=== PATIENT | female | born 1940 | race Caucasian/White ===

== ENCOUNTER 2020-10-03 08:01 | Outpatient (REF) | payer MEDICARE, SELFPAY ==
--- NOTE | ~2020-10-03 | XR_ITS ---
EXAMINATION: XR SHOULDER, RIGHT CLINICAL INFORMATION: Right shoulder pain. COMPARISON: None TECHNIQUE: Right shoulder is imaged in 3 views. FINDINGS: There is no fracture or dislocation or destructive process. The glenohumeral joint is unremarkable. The acromioclavicular alignment is normal. There are no visible rotator cuff calcifications. There are degenerative disc changes mid and lower cervical spine with some mild spurring towards the right cervical neural foramen. There are some benign calcifications apex right lung likely granulomata. XR/XR shoulder RT min 2V IMPRESSION: 1. Unremarkable right shoulder. 2. Degenerative changes mid and lower cervical spine.
== END 2020-10-03 08:02 | disposition home or self-care (01) ==
LOC: HO.HOSX 08:01
PROVIDERS: Visit Provider Physician Assistant
DX: M75.41 Impingement syndrome of right shoulder (principal)
CPT/HCPCS: 20610; 73030; 99202; J1040

== ENCOUNTER → 2020-12-30 11:14 | Outpatient (BNVA) | payer MEDICARE, SELFPAY | PROVIDERS: Visit Provider Physician Assistant | DX: M75.41 Impingement syndrome of right shoulder (principal) | CPT/HCPCS: 20610; 99212; J1040 ==

== ENCOUNTER → 2021-04-17 12:19 | Outpatient (BNVA) | payer MEDICARE, SELFPAY | PROVIDERS: PCP Internal Medicine; Visit Provider Physician Assistant | DX: M75.41 Impingement syndrome of right shoulder (principal) | CPT/HCPCS: 20610; 99212; J1040 ==

== ENCOUNTER → 2021-10-20 12:28 | Outpatient (BNVA) | payer MEDICARE, SELFPAY | PROVIDERS: PCP Internal Medicine; Visit Provider Physician Assistant | DX: M75.41 Impingement syndrome of right shoulder (principal) | CPT/HCPCS: 20610; 99212; J1040 ==

== ENCOUNTER 2022-06-07 10:01 | Outpatient (REF) | payer MEDICARE, SELFPAY ==
--- NOTE | ~2022-06-07 | XR_ITS ---
EXAMINATION: Knee x-ray CLINICAL INFORMATION: Pain COMPARISON: Previous x-ray July 2017 TECHNIQUE: Standing AP view of both knees and lateral and sunrise view of the left knee FINDINGS: Left: Bone alignment is normal. No fracture or dislocation. Degenerative changes at the femoral tibial joints with joint space narrowing and degenerative meniscal calcification. Small osteophytes at the patellofemoral joint. Small joint effusion. Atherosclerotic disease. Standing AP view of the right knee demonstrates degenerative change at the femoral tibial joints with degenerative meniscal calcification. XR/XR knee standing BI IMPRESSION: Degenerative changes.
--- NOTE | ~2022-06-07 | XR_ITS ---
EXAMINATION: Knee x-ray CLINICAL INFORMATION: Pain COMPARISON: Previous x-ray July 2017 TECHNIQUE: Standing AP view of both knees and lateral and sunrise view of the left knee FINDINGS: Left: Bone alignment is normal. No fracture or dislocation. Degenerative changes at the femoral tibial joints with joint space narrowing and degenerative meniscal calcification. Small osteophytes at the patellofemoral joint. Small joint effusion. Atherosclerotic disease. Standing AP view of the right knee demonstrates degenerative change at the femoral tibial joints with degenerative meniscal calcification. XR/XR knee LT 2V IMPRESSION: Degenerative changes.
== END 2022-06-07 10:02 | disposition home or self-care (01) ==
LOC: HO.HOSX 10:01
PROVIDERS: Visit Provider Physician Assistant
DX: M17.12 Unilateral primary osteoarthritis, left knee (principal)
CPT/HCPCS: 20610; 73560; 73565; 99212; J1040

== ENCOUNTER 2023-04-05 15:16 | Outpatient (AMB) | payer MEDICARE, SELFPAY ==
--- NOTE | 2023-04-05 15:23 | A.OFFVIS_ITS ---
Intake Intake Visit Reasons: OV - Left knee OA, last inj 06/07/22 Intake Note: Margi is a 82 year old female who presents today for her left knee OA, last injection 06/07/22. Patient reports she noticed a lump behind of the knee about a couple months. She states that is causing her a lot of pain and she is unsure if the lump is causing her the left knee pain. Allergies acetaminophen [Percocet] Allergy (Unknown, Verified 04/05/23 15:26) rash oxycodone [Percocet] Allergy (Unknown, Verified 04/05/23 15:26) Rash HPI OV - Left knee OA, last inj 06/07/22 HPI Details 82-year-old female who presents in the [facility] today for an evaluation of a possible naylor?s cyst on the left knee. I last saw the patient in the office on 06/07/2022 where she was given a cortisone injection. The patient reports noticing a lump on the back side of her left knee for a few months. She states this is causing her a lot of pain. PFSH Medical History Cholecystectomy planned Social History Current occupational status: retired Current occupation: rt handed Review of Systems Const All systems reviewed & are unremarkable except as noted in HPI and below Physical Exam Const General: cooperative, healthy appearing and no acute distress Resp Effort & Inspection: normal respiratory effort and able to speak in complete sentences Cardio Rate: regular rate Peripheral pulses: Peripheral pulses 2+ throughout GI Palpation (GI): Soft to palpation Skin Lesions: no lesions Rashes: no rashes Extrem Other: Left knee: Visible naylor?s cyst also palpable on exam. ROM is 20-90 degrees. Sensation intact. NVI. Office Procedures Joint Injection/Drain Joint Injection/Drain Primary Site: left knee Prep: site was prepped using aseptic technique, ethochloride spray was applied and injection warnings given Injected: 80 mg of, DepoMedrol, with 8 mL of (2% plain lido ) and in the joint Approach Used: anterolateral Procedure: The patient tolerated the procedure well, but had some pain with the injection and there was some relief with the local anesthesia Coding 56515 - Large joint Procedure code (CPT) selection complete Assessment & Plan Assessment & Plan (1) Synovial cyst of popliteal space [Naylor], left knee: Code(s): M71.22 - Synovial cyst of popliteal space [Naylor], left knee (2) Osteoarthritis of left knee: Code(s): M17.12 - Unilateral primary osteoarthritis, left knee Plan Ms. House is an 82-year-old female who presents in the office today for an evaluation of a possible naylor?s cyst on the left knee. I last saw the patient in the office on 06/07/2022 where she was given a cortisone injection. The patient reports noticing a lump on the back side of her left knee for a few months. She states this is causing her a lot of pain. The patient was offered a cortisone injection in the left knee with 80 mg of DepoMedrol. The patient was explained the risk, benefits, and alternatives to receiving this injection. After receiving consent for the injection, the patient had the procedure done while in office today. The patient tolerated the procedure well with no complications. We are going to do the cortisone injection to see if this will help to reduce some of the effusion contributing to the naylor?s cyst and pain. Follow up will be PRN, or sooner if needed. Patient Instructions: Scribed for Lizeth Hawkins PA-C by Loretta Allen medical receptionist biller, on 04/05/2023 at 3:23 pm, EST. Coding Level of Care Code Est Pt Level 3 (71352) Diagnoses Synovial cyst of popliteal space [Naylor], left knee M71.22 Osteoarthritis of left knee M17.12 CPT Codes Coding - 19537 Large joint: 31992 - Large joint ([id number])
== END 2023-04-05 15:51 | disposition home or self-care (01) ==
PROVIDERS: PCP Internal Medicine; Visit Provider Physician Assistant
DX: M71.22 Synovial cyst of popliteal space [Baker], left knee (principal); M17.12 Unilateral primary osteoarthritis, left knee
CPT/HCPCS: 20610; 99213

== ENCOUNTER → 2023-04-05 15:16 | Outpatient (BNVA) | payer MEDICARE, SELFPAY | PROVIDERS: PCP Internal Medicine; Visit Provider Physician Assistant | DX: M17.12 Unilateral primary osteoarthritis, left knee (principal); M71.22 Synovial cyst of popliteal space [Baker], left knee | CPT/HCPCS: 20610; 99212; J1040 ==

== ENCOUNTER 2023-06-30 14:00 | Outpatient (AMB) | payer MEDICARE, SELFPAY ==
--- NOTE | 2023-06-30 14:35 | A.OFFVIS_ITS ---
Intake Visit Reasons: OV - Left knee OA, last inj 04/05/23 Allergies acetaminophen [Percocet] Allergy (Unknown, Verified 04/05/23 15:26) rash oxycodone [Percocet] Allergy (Unknown, Verified 04/05/23 15:26) Rash HPI HPI OV - Left knee OA, last inj 04/05/23: Details: 82-year-old female who presents in the office today for a follow up of a left knee naylor?s cyst. I last saw the patient in the office on 04/05/2023 when she was given a cortisone injection. Patient reports her last injection only gave her a few days of relief. PFSH Medical History Cholecystectomy planned Social History Current occupational status: retired Current occupation: rt handed Review of Systems Const All systems reviewed & are unremarkable except as noted in HPI and below Physical Exam Const General: cooperative, healthy appearing and no acute distress Resp Effort & Inspection: normal respiratory effort and able to speak in complete sentences Cardio Rate: regular rate Peripheral pulses: Peripheral pulses 2+ throughout GI Palpation (GI): Soft to palpation Skin Lesions: no lesions Rashes: no rashes Extrem Other: Left knee: Visible naylor?s cyst also palpable on exam. ROM is 20-90 degrees. Sensation intact. NVI. Office Procedures Joint Injection/Drain Joint Injection/Drain Primary Site: left knee Prep: site was prepped using aseptic technique, ethochloride spray was applied and injection warnings given Injected: 80 mg of, DepoMedrol, with 8 mL of (2% plain lido ) and in the joint Approach Used: anterolateral Procedure: The patient tolerated the procedure well, but had some pain with the injection and there was some relief with the local anesthesia Coding 97264 - Large joint Procedure code (CPT) selection complete Assessment & Plan Assessment & Plan (1) Synovial cyst of popliteal space [Naylor], left knee: Code(s): M71.22 - Synovial cyst of popliteal space [Naylor], left knee Category: Medical (2) Osteoarthritis of left knee: Code(s): M17.12 - Unilateral primary osteoarthritis, left knee Category: Medical Qualifiers: Osteoarthritis type: unspecified Qualified Code(s): M17.12 - Unilateral primary osteoarthritis, left knee Plan Ms. House is an 82-year-old female who presents in the office today for a follow up of a left knee naylor?s cyst. I last saw the patient in the office on 04/05/2023 when she was given a cortisone injection. Patient reports her last injection only gave her a few days of relief. The patient was offered a cortisone injection in the left knee with 80 mg of DepoMedrol. The patient was explained the risk, benefits, and alternatives to receiving this injection. After receiving consent for the injection, the patient had the procedure done while in the office today. The patient tolerated the procedure well with no complications. I did discuss with the patient to give the injection a few weeks to work. However, she did state the last injection only gave her a few days. Should that occur this time the next step will be to petition the insurance for Gel injections. Follow up will be PRN, or sooner if needed. Patient Instructions: Scribed by Loretta Allen internist medical doctor md, for Lizeth Hawkins PA-C on 06/30/2023 at 2:08 pm, EST. Coding Level of Care Code Est Pt Level 3 (22611) Diagnoses Synovial cyst of popliteal space [Naylor], left knee M71.22 Osteoarthritis of left knee, unspecified osteoarthritis type M17.12 Osteoarthritis type: unspecified CPT Codes Coding - 03929 Large joint: 87799 - Large joint ([id number])
== END 2023-06-30 14:34 | disposition home or self-care (01) ==
PROVIDERS: PCP Internal Medicine; Visit Provider Physician Assistant
DX: M71.22 Synovial cyst of popliteal space [Baker], left knee (principal); M17.12 Unilateral primary osteoarthritis, left knee
CPT/HCPCS: 20610; 99213

== ENCOUNTER → 2023-06-30 14:00 | Outpatient (BNVA) | payer MEDICARE, SELFPAY | PROVIDERS: PCP Internal Medicine; Visit Provider Physician Assistant | DX: M71.22 Synovial cyst of popliteal space [Baker], left knee (principal); M17.12 Unilateral primary osteoarthritis, left knee | CPT/HCPCS: 20610; 99212; J1010 ==

== ENCOUNTER 2023-11-01 12:33 | Outpatient (AMB) | payer MEDICARE, SELFPAY ==
--- NOTE | 2023-11-01 12:35 | A.OFFVIS_ITS ---
Intake Visit Reasons: OV - Left knee OA, last inj 06/30/23 Intake Note: Margi is a 83 year old female who presents today for her left knee OA, last injection 06/30/23. Patient reports Allergies acetaminophen [Percocet] Allergy (Unknown, Verified 04/05/23 15:26) rash oxycodone [Percocet] Allergy (Unknown, Verified 04/05/23 15:26) Rash HPI HPI OV - Left knee OA, last inj 06/30/23: Details: 83-year-old female who presents in the office today for a follow-up of left knee osteoarthritis. I last saw the patient in the office on 06/30/23 when she was given a cortisone injection in the left knee. ? ? While in the office today, the patient would like to repeat the injection in the office today. ? PFSH Medical History Cholecystectomy planned Social History Current occupational status: retired Current occupation: rt handed Review of Systems Const All systems reviewed & are unremarkable except as noted in HPI and below Physical Exam Const General: cooperative, healthy appearing and no acute distress Resp Effort & Inspection: normal respiratory effort and able to speak in complete sentences Cardio Rate: regular rate Peripheral pulses: Peripheral pulses 2+ throughout GI Palpation (GI): Soft to palpation Skin Lesions: no lesions Rashes: no rashes Extrem Other: Left knee: Visible naylor?s cyst also palpable on exam. ROM is 20-90 degrees. Sensation intact. NVI. Office Procedures Joint Injection/Aspiration Joint Injection/Aspiration Primary Site: left knee Prep: site was prepped using aseptic technique, ethochloride spray was applied and injection warnings given Injected: 80 mg of, DepoMedrol, with 8 mL of (2% plain lido ) and in the joint Approach Used: anterolateral Procedure: The patient tolerated the procedure well, but had some pain with the injection and there was some relief with the local anesthesia Coding 19604 - Large joint Procedure code (CPT) selection complete Assessment & Plan Assessment & Plan (1) Synovial cyst of popliteal space [Naylor], left knee: Code(s): M71.22 - Synovial cyst of popliteal space [Naylor], left knee Category: Medical (2) Osteoarthritis of left knee: Code(s): M17.12 - Unilateral primary osteoarthritis, left knee Category: Medical Qualifiers: Osteoarthritis type: unspecified Qualified Code(s): M17.12 - Unilateral primary osteoarthritis, left knee Plan Ms. House is an 83-year-old female who presents in the office today for a follow-up of left knee osteoarthritis. I last saw the patient in the office on 06/30/23 when she was given a cortisone injection in the left knee. ? ? While in the office today, the patient would like to repeat the injection in the office today.? ? The patient was offered a cortisone injection in the left knee with 80 mg of DepoMedrol. The patient was explained the risk, benefits, and alternatives to receiving this injection. After receiving consent for the injection, the patient had the procedure done while in the office today. The patient tolerated the procedure well with no complications.? ? The office will petition the insurance for approval to proceed with Gel injections. Follow-up will be after insurance approval is obtained, or sooner if needed. Patient Instructions: Scribed by Loretta Allen medical record administrator, for Lizeth Hawkins PA-C on 11/01/2023 at 12:35 pm, EST.? Coding Level of Care Code Est Pt Level 3 (32304) Diagnoses Synovial cyst of popliteal space [Naylor], left knee M71.22 Osteoarthritis of left knee, unspecified osteoarthritis type M17.12 Osteoarthritis type: unspecified CPT Codes Coding - 46892 Large joint: 75387 - Large joint ([id number])
== END 2023-11-01 13:03 | disposition home or self-care (01) ==
PROVIDERS: PCP Internal Medicine; Visit Provider Physician Assistant
DX: M17.12 Unilateral primary osteoarthritis, left knee (principal); M71.22 Synovial cyst of popliteal space [Baker], left knee
CPT/HCPCS: 20610; 99213

== ENCOUNTER → 2023-11-01 12:33 | Outpatient (BNVA) | payer MEDICARE, SELFPAY | PROVIDERS: PCP Internal Medicine; Visit Provider Physician Assistant | DX: M17.12 Unilateral primary osteoarthritis, left knee (principal); M71.22 Synovial cyst of popliteal space [Baker], left knee | CPT/HCPCS: 20610; 99212; J1010 ==

== ENCOUNTER → 2024-04-10 12:49 | Outpatient (BNVA) | payer MEDICARE, SELFPAY | PROVIDERS: PCP Nurse Practitioner Family; Visit Provider Physician Assistant | DX: M17.12 Unilateral primary osteoarthritis, left knee (principal); M71.22 Synovial cyst of popliteal space [Baker], left knee | CPT/HCPCS: 20610; 99212; J1010; J2003 ==

== ENCOUNTER 2024-07-10 13:19 | Outpatient (AMB) | payer MEDICARE, SELFPAY ==
--- NOTE | 2024-07-10 13:25 | MHC.OFFVIS ---
Intake Visit Reasons: OV- LT knee OA last inj 04/10/24 Intake Note: Margi is a 83 year old female who presents today for her left knee OA, last injection 04/10/24. Patient reports that the last injection only provided mild relief. She was previously approved for gel injection but was sick and unable to attend appointment and authorization . She is hping to repeat cortisone injection today and proceed with Gel when authorized. Allergies acetaminophen [Percocet] Allergy (Unknown, Verified 07/10/24 13:32) rash oxycodone [Percocet] Allergy (Unknown, Verified 07/10/24 13:32) Rash HPI HPI OV- LT knee OA last inj 04/10/24: Details: Ms. House is an 83-year-old female who presents to the office today for left knee osteoarthritis. She last received a cortisone injection on 04/10/2024 with good relief. She would like to repeat injection while the office today. PFSH Medical History Cholecystectomy planned Social History Current occupational status: retired Current occupation: rt handed Review of Systems Const All systems reviewed & are unremarkable except as noted in HPI and below Physical Exam Const General: cooperative, healthy appearing and no acute distress Resp Effort & Inspection: normal respiratory effort and able to speak in complete sentences Extrem Other: Left knee: ROM is 20-90 degrees. Sensation intact. NVI. Office Procedures AMB Joint Injection/Aspiration Joint Injection/Aspiration Primary Site: left knee Prep: site was prepped using aseptic technique, ethochloride spray was applied and injection warnings given Injected: 80 mg of, DepoMedrol, with 8 mL of (2% plain lido ) and in the joint Approach Used: anterolateral Procedure: The patient tolerated the procedure well, but had some pain with the injection and there was some relief with the local anesthesia Coding 83926 - Large joint Procedure code (CPT) selection complete Assessment & Plan Assessment & Plan (1) Synovial cyst of popliteal space [Naylor], left knee: Code(s): M71.22 - Synovial cyst of popliteal space [Naylor], left knee Category: Medical (2) Osteoarthritis of left knee: Code(s): M17.12 - Unilateral primary osteoarthritis, left knee Category: Medical Qualifiers: Osteoarthritis type: unspecified Qualified Code(s): M17.12 - Unilateral primary osteoarthritis, left knee Plan The patient was offered a cortisone injection in the left knee with 80 mg of DepoMedrol. The patient was explained the risks, benefits, and alternatives to receiving this injection. After receiving consent for the injection, the patient had the procedure done while in the office today. The patient tolerated the procedure well with no complications. Patient is interested in moving forward with gel injections as cord injections have lost their efficacy over time.We will petition the insurance company for authorization. She will follow up after authorization is obtained, sooner if needed. Coding Level of Care Code Est Pt Level 3 (11007) Diagnoses Synovial cyst of popliteal space [Naylor], left knee M71.22 Osteoarthritis of left knee, unspecified osteoarthritis type M17.12 Osteoarthritis type: unspecified CPT Codes Coding - 97199 Large joint: 02994 - Large joint ([id number])
--- OUTSIDE RECORDS SUMMARY | 2024-07-10 14:35 | XMS_ITS | Encounter Summary ---
Author Organization [facility] Address [address] [place] [address] Care Team Providers Care Wire Spiral Binder Name Role Phone Flaco Moser MD Primary Care Provider [phone] Encounter Details Date Type Department Care Team (Late st Contact Info) Description 05/15/2024 Lab Requisition [facility] - Main Lab [address] [facility] [place] [address] Flaco Moser MD [address] [place] [address] [phone] Encounter for other general examination Social History Tobacco Use Types Packs/Day Years Used Date Smoking Tobacco: Never Assessed Comments Unknown Sex and Gender Information Value Date Recorded Sex Assigned at Not on file Legal Sex Female 12:45 PM EST Gender Identity Not on file Sexual Orientation Not on file documented as of this encounter Plan of Treatment Not on file documented as of this encounter Procedures Procedure Name Priority Date/Time Associated Diagnosis Comments URINALYSIS WITH REFLEX MICROSCOPIC AND CULTURE Routine 05/14/2024 6:00 PM EDT Encounter for other general examination CHEN URINE CULTURE TUBE Routine 05/14/2024 6:00 PM EDT Encounter for other general examination URINALYSIS WITH REFLEX MICROSCOPIC AND CULTURE Routine 05/14/2024 6:00 PM EDT Encounter for other general examination CULTURE URINE Routine 05/14/2024 6:00 PM EDT Encounter for other general examination documented in this encounter Results * (ABNORMAL) Culture urine (05/14/2024 6:00 PM EDT) Culture, Urine >100,000 CFU/mL Escherichia coli(A) MARILY 05/18/2024 11:12 AM EDT [facility] Comment: The organism value for this result has been updated. These results have been appended to the previously preliminary verified report. Urine Urine specimen obtained by clean catch procedure / Unknown Non-blood Collection / Unknown 05/14/2024 6:00 PM EDT 05/15/2024 12:57 PM EDT Narrative [facility] - 05/18/2024 11:12 AM EDT Additional colony types present in insignificant amounts. Organism Antibiotic Method Susceptibility Escherichia coli Amoxicillin/Clavulanate MARILY <=2 ug/ml: Susceptible Escherichia coli Ampicillin/Sulbactam MARILY <=2 ug/ml: Susceptible Escherichia coli Piperacillin/Tazobactam MARILY <=4 ug/ml: Susceptible Escherichia coli Cefazolin (Urine) MARILY <=1 ug/ml: Susceptible Escherichia coli Cefoxitin MARILY <=4 ug/ml: Susceptible Escherichia coli Ceftazidime MARILY <=0.5 ug/ml: Susceptible Escherichia coli Ceftriaxone MARILY <=0.25 ug/ml: Susceptible Escherichia coli Cefepime MARILY <=0.12 ug/ml: Susceptible Escherichia coli Meropenem MARILY <=0.25 ug/ml: Susceptible Escherichia coli Gentamicin MARILY 2 ug/ml: Susceptible Escherichia coli Ciprofloxacin MARILY <=0.06 ug/ml: Susceptible Escherichia coli Levofloxacin MARILY <=0.12 ug/ml: Susceptible Escherichia coli Nitrofurantoin MARILY <=16 ug/ml: Susceptible Escherichia coli Trimethoprim/Sulfamethoxazole MARILY <=20 ug/ml: Susceptible us Flaco Moser MD LAB MICROBIOLOGY - GENERAL ORD ERABLES Final Result [facility] [address] [place] [address], * (ABNORMAL) Urinalysis with reflex microscopic and culture (05/14/2024 6:00 PM EDT) Specific [place] Urine 1.037(H) 1.003 - 1.030 LAB URINALYSIS - AUTOMATED METHOD 05/15/2024 12:57 PM [facility] pH, Urine 5.5 5.0 - 8.0 pH LAB URINALYSIS - AUTOMATED METHOD 05/15/2024 12:57 PM [facility] Leukocytes, Urine Moderate(A) Negative LAB URINALYSIS - AUTOMATED METHOD 05/15/2024 12:57 PM [facility] Nitrite, Urine Positive(A) Negative LAB URINALYSIS - AUTOMATED METHOD 05/15/2024 12:57 PM [facility] Protein, Urine 30(A) <=Trace mg/dL LAB URINALYSIS - AUTOMATED METHOD 05/15/2024 12:57 PM [facility] Glucose, Urine Negative Negative mg/dL LAB URINALYSIS - AUTOMATED METHOD 05/15/2024 12:57 PM [facility] Ketones, Urine Trace(A) Negative mg/dL LAB URINALYSIS - AUTOMATED METHOD 05/15/2024 12:57 PM [facility] Urobilinogen , Urine 1.0 0.2 - 1.0 mg/dL LAB URINALYSIS - AUTOMATED METHOD 05/15/2024 12:57 PM [facility] Bilirubin, Urine Negative Negative LAB URINALYSIS - AUTOMATED METHOD 05/15/2024 12:57 PM [facility] Blood, Urine Negative Negative LAB URINALYSIS - AUTOMATED METHOD 05/15/2024 12:57 PM [facility] RBC, Urine 3.2 0 - 4 /HPF LAB URINALYSIS - AUTOMATED METHOD 05/15/2024 12:57 PM [facility] WBC, Urine 161.2(H) 0 - 4 /HPF LAB URINALYSIS - AUTOMATED METHOD 05/15/2024 12:57 PM [facility] Squamous Epithelial, Urine >100(H) 0 - 60 /LPF LAB URINALYSIS - AUTOMATED METHOD 05/15/2024 12:57 PM EDT [facility] Bacteria, Urine Many(A) Negative /HPF LAB URINALYSIS - AUTOMATED METHOD 05/15/2024 12:57 PM EDT [facility] Hyaline Casts, Urine 9.5(H) 0 - 3 /LPF LAB URINALYSIS - AUTOMATED METHOD 05/15/2024 12:57 PM EDT [facility] Urine Urine specimen obtained by clean catch procedure / Unknown Non-blood Collection / Unknown 05/14/2024 6:00 PM EDT 05/15/2024 10:30 AM EDT us Flaco Moser MD LAB URINE ORDERABLES Final Res ult Performing Organization Address City/[facility]/ZIP Co de Phone Number [facility] [address] [place] [address], [place] [phone] * Chen urine culture tube (05/14/2024 6:00 PM EDT) Extra Tube Hold for add-ons. 05/15/2024 12:02 PM EDT [facility] Comment:Auto resulted. Urine Urine specimen obtained by clean catch procedure / Unknown Non-blood Collection / Unknown 05/14/2024 6:00 PM EDT 05/15/2024 10:30 AM EDT us Flaco Moser MD LAB URINE ORDERABLES Final Res ult Performing Organization Address City/[facility]/ZIP Co de Phone Number [facility] [address] [place] [address], [place] [phone] documented in this encounter Visit Diagnoses Diagnosis Encounter for other general examination documented in this encounter Care Teams Wire Spiral Binder Relationship Specialty Start Date End Date Flaco Moser MD [address] [place] [phone] PCP - General Internal Medicine 05/08/24 documented as of this encounter
--- OUTSIDE RECORDS SUMMARY | 2024-07-10 14:35 | XMS_ITS | Encounter Summary ---
Author Organization [facility] Address [address] [place] [address] Care Team Providers Care Fish Hatchery Inspector Name Role Phone Flaco Moser MD Primary Care Provider [phone] Encounter Details Date Type Department Care Team ([facility] st Contact Info) Description 05/08/2024 Lab Requisition [facility] - Main Lab [address] [facility] [place] [address] Flaco Moser MD [address] [place] [address] [phone] Encounter for other general examination Social History [...] Procedure Name Priority Date/Time Associated Diagnosis Comments CBC WITH AUTO DIFFERENTIAL Routine 05/08/2024 6:13 AM EST Encounter for other general examination CBC AND DIFFERENTIAL Routine 05/08/2024 6:13 AM EST Encounter for other general examination MAGNESIUM Routine 05/08/2024 6:13 AM EST Encounter for other general examination COMPREHENSIVE METABOLIC PANEL Routine 05/08/2024 6:13 AM EST Encounter for other general examination documented in this encounter Results * (ABNORMAL) CBC auto differential (05/08/2024 6:13 AM EST) WBC 8.4 4.8 - 10.8 K/mcL LAB HEMETOLOGY METHOD 05/08/2024 10:28 AM [facility] RBC 4.10 3.80 - 4.80 M/mcL LAB HEMETOLOGY METHOD 05/08/2024 10:28 AM [facility] Hemoglobin 12.4 11.5 - 16.0 g/dL LAB HEMETOLOGY METHOD 05/08/2024 10:28 AM [facility] Hematocrit 37.3 35.0 - 47.0 % LAB HEMETOLOGY METHOD 05/08/2024 10:28 AM [facility] MCV 91.6 79.0 - 98.0 FL LAB HEMETOLOGY METHOD 05/08/2024 10:28 AM [facility] MCH 30.5 27.0 - 32.0 pcg LAB HEMETOLOGY METHOD 05/08/2024 10:28 AM [facility] MCHC 33.2 32.0 - 37.0 g/dL LAB HEMETOLOGY METHOD 05/08/2024 10:28 AM [facility] RDW 12.8 11.0 - 15.0 % LAB HEMETOLOGY METHOD 05/08/2024 10:28 AM [facility] Platelets 265 130 - 400 K/mcL LAB HEMETOLOGY METHOD 05/08/2024 10:28 AM [facility] MPV 9.5 7.0 - 11.0 FL LAB HEMETOLOGY METHOD 05/08/2024 10:28 AM [facility] NRBC 0.0 <1.0 % LAB HEMETOLOGY METHOD 05/08/2024 10:28 AM [facility] NRBC Absolute 0.00 <0.10 K/mcL LAB HEMETOLOGY METHOD 05/08/2024 10:28 AM [facility] Neutrophils Relative 63.2 % LAB HEMETOLOGY METHOD 05/08/2024 10:28 AM [facility] Lymphocytes Relative 18.8 % LAB HEMETOLOGY METHOD 05/08/2024 10:28 AM [facility] Monocytes Relative 14.3 % LAB HEMETOLOGY METHOD 05/08/2024 10:28 AM [facility] Eosinophils Relative 2.5 % LAB HEMETOLOGY METHOD 05/08/2024 10:28 AM [facility] Basophils Relative 0.6 % LAB HEMETOLOGY METHOD 05/08/2024 10:28 AM [facility] Immature Granulocytes Relative 0.6 % LAB HEMETOLOGY METHOD 05/08/2024 10:28 AM [facility] Neutrophils Absolute 5.31 1.50 - 7.00 K/mcL LAB HEMETOLOGY METHOD 05/08/2024 10:28 AM [facility] Lymphocytes Absolute 1.58 1.00 - 5.00 K/mcL LAB HEMETOLOGY METHOD 05/08/2024 10:28 AM [facility] Monocytes Absolute 1.20(H) 0.20 - 1.00 K/mcL LAB HEMETOLOGY METHOD 05/08/2024 10:28 AM [facility] Eosinophils Absolute 0.21 0.00 - 0.50 K/mcL LAB HEMETOLOGY METHOD 05/08/2024 10:28 AM [facility] Basophils Absolute 0.05 0.00 - 0.20 K/mcL LAB HEMETOLOGY METHOD 05/08/2024 10:28 AM [facility] Immature Granulocytes Absolute 0.05(H) 0.00 - 0.03 K/mcL LAB HEMETOLOGY METHOD 05/08/2024 10:28 AM [facility] Blood Venous blood specimen / Unknown Venipuncture / Unknown 05/08/2024 6:13 AM EST 05/08/2024 9:15 AM EST us Adnan M Dahdul MD LAB BLOOD ORDERABLES Final Res ult [facility] [address] [place] [address], [place] [phone] * (ABNORMAL) Magnesium (05/08/2024 6:13 AM EST) Magnesium 1.8(L) 1.9 - 2.6 mg/dL LAB CHEMISTRY METHOD 05/08/2024 10:52 AM EST [facility] Blood Venous blood specimen / Unknown Venipuncture / Unknown 05/08/2024 6:13 AM EST 05/08/2024 9:15 AM EST Flaco Moser MD LAB BLOOD ORDERABLES Final Res ult Performing Organization Address City/[facility]/ZIP Co de Phone Number [facility] [address] [place] [address], [place] [phone] * (ABNORMAL) Comprehensive metabolic panel (05/08/2024 6:13 AM EST) Pathologist [facility] Sodium 132(L) 133 - 145 mmol/L LAB CHEMISTRY METHOD 05/08/2024 10:52 AM [facility] Potassium 3.9 3.5 - 5.5 mmol/L LAB CHEMISTRY METHOD 05/08/2024 10:52 AM [facility] Chloride 93(L) 96 - 110 mmol/L LAB CHEMISTRY METHOD 05/08/2024 10:52 AM [facility] CO2 32 21 - 32 mmol/L LAB CHEMISTRY METHOD 05/08/2024 10:52 AM [facility] Anion Gap 7 3 - 11 LAB CHEMISTRY METHOD 05/08/2024 10:52 AM [facility] Glucose 99 70 - 100 mg/dL LAB CHEMISTRY METHOD 05/08/2024 10:52 AM [facility] BUN 49(H) 5 - 25 mg/dL LAB CHEMISTRY METHOD 05/08/2024 10:52 AM [facility] Creatinine 0.62 0.50 - 1.10 mg/dL LAB CHEMISTRY METHOD 05/08/2024 10:52 AM [facility] eGFR 87 >=60 mL/min/1. 73m2 LAB CHEMISTRY METHOD 05/08/2024 10:52 AM [facility] Comment:Calculation based on the??Chronic Kidney Disease Epidemiology Collaboration (CKD-EPI) equation refit??without adjustment for race. BUN/Creatinine Ratio 79.0 LAB CHEMISTRY METHOD 05/08/2024 10:52 AM [facility] Calcium 9.3 8.5 - 10.5 mg/dL LAB CHEMISTRY METHOD 05/08/2024 10:52 AM [facility] AST (SGOT) 32 10 - 42 unit/L LAB CHEMISTRY METHOD 05/08/2024 10:52 AM [facility] ALT (SGPT) 25 10 - 60 unit/L LAB CHEMISTRY METHOD 05/08/2024 10:52 AM [facility] Alkaline Phosphatase 74 42 - 121 unit/L LAB CHEMISTRY METHOD 05/08/2024 10:52 AM [facility] Total Protein 5.7(L) 6.0 - 8.0 g/dL LAB CHEMISTRY METHOD 05/08/2024 10:52 AM [facility] Albumin 2.5(L) 3.2 - 5.0 g/dL LAB CHEMISTRY METHOD 05/08/2024 10:52 AM [facility] Total Bilirubin 0.6 0.0 - 1.4 mg/dL LAB CHEMISTRY METHOD 05/08/2024 10:52 AM [facility] Blood Venous blood specimen / Unknown Venipuncture / Unknown 05/08/2024 6:13 AM EST 05/08/2024 9:15 AM EST Flaco Moser MD LAB BLOOD ORDERABLES Final Res ult [facility] [address] [place] [address], documented in this encounter Visit Diagnoses Diagnosis Encounter for other general examination documented in this encounter Care Teams Fish Hatchery Inspector Relationship Specialty Start Date End Date Flaco Moser MD [address] [place] [phone] PCP - General Internal Medicine 05/08/24 documented as of this encounter
--- OUTSIDE RECORDS SUMMARY | 2024-07-10 14:35 | XMS_ITS | Encounter Summary ---
Author Organization [facility] Address [address] [place] [address] Care Team Providers Care Vertical Contour Band Saw Operator Name Role Phone Flaco Moser MD Primary Care Provider [phone] Encounter Details Date Type Department Care Team (Late st Contact Info) Description 05/21/2024 Lab Requisition [facility] - Main Lab [address] [place] [phone] Flaco Moser MD [address] [place] [address] [phone] Encounter for other general examination Social History [...] Procedure Name Priority Date/Time Associated Diagnosis Comments COMPLETE BLOOD COUNT Routine 05/21/2024 5:58 AM EDT Encounter for other general examination COMPREHENSIVE METABOLIC PANEL Routine 05/21/2024 5:58 AM EDT Encounter for other general examination documented in this encounter Results * (ABNORMAL) Complete blood count (05/21/2024 5:58 AM EDT) WBC 4.2(L) 4.8 - 10.8 K/[facility] LAB HEMETOLOGY METHOD 05/21/2024 1:18 PM EDT [facility] RBC 3.80 3.80 - 4.80 M/[facility] LAB HEMETOLOGY METHOD 05/21/2024 1:18 PM EDT [facility] Hemoglobin 11.7 11.5 - 16.0 g/dL LAB HEMETOLOGY METHOD 05/21/2024 1:18 PM EDT [facility] Hematocrit 36.3 35.0 - 47.0 % LAB HEMETOLOGY METHOD 05/21/2024 1:18 PM EDT [facility] MCV 94.8 79.0 - 98.0 FL LAB HEMETOLOGY METHOD 05/21/2024 1:18 PM EDT [facility] MCH 30.5 27.0 - 32.0 pcg LAB HEMETOLOGY METHOD 05/21/2024 1:18 PM EDT [facility] MCHC 32.2 32.0 - 37.0 g/dL LAB HEMETOLOGY METHOD [facility] RDW 13.1 11.0 - 15.0 % LAB HEMETOLOGY METHOD 05/21/2024 1:18 PM EDT [facility] Platelets 432(H) 130 - 400 K/mcL LAB HEMETOLOGY METHOD 05/21/2024 1:18 PM EDT [facility] MPV 8.8 7.0 - 11.0 FL LAB HEMETOLOGY METHOD 05/[facility]2024 [facility] NRBC 0.0 <1.0 % LAB HEMETOLOGY METHOD 05/21/2024 1:18 PM EDT [facility] NRBC Absolute 0.00 <0.10 K/mcL LAB HEMETOLOGY METHOD 05/21/2024 1:[address] [facility] Blood Venous blood specimen / Unknown Venipuncture / Unknown 05/21/2024 5:58 AM EDT 05/21/2024 10:05 AM EDT Flaco Moser MD LAB BLOOD ORDERABLES Final Res ult [facility] [address] [place] [address], * (ABNORMAL) Comprehensive metabolic panel (05/21/2024 5:58 AM EDT) Sodium 140 133 - 145 mmol/L LAB CHEMISTRY METHOD 05/21/2024 1:50 PM EDT [facility] Potassium 3.9 3.5 - 5.5 mmol/L LAB CHEMISTRY METHOD 05/21/2024 1:[address] [facility] Chloride 104 96 - 110 mmol/L LAB CHEMISTRY METHOD 05/21/2024 1:[address] [facility] CO2 27 21 - 32 mmol/L LAB CHEMISTRY METHOD 05/21/2024 1:[address] [facility] Anion Gap 9 3 - 11 LAB CHEMISTRY METHOD 05/21/2024 1:[address] [facility] Glucose 85 70 - 100 mg/dL LAB CHEMISTRY METHOD 05/21/2024 1:[address] [facility] BUN 8 5 - 25 mg/dL LAB CHEMISTRY METHOD 05/21/2024 1:[address] [facility] Creatinine 0.43(L) 0.50 - 1.10 mg/dL LAB CHEMISTRY METHOD [facility] eGFR 95 >=60 mL/min/1. 73m2 LAB CHEMISTRY METHOD 05/21/2024 1:[address] [facility] Comment:Calculation based on the??Chronic Kidney Disease Epidemiology Collaboration (CKD-EPI) equation refit??without adjustment for race. BUN/Creatinine Ratio 18.6 LAB CHEMISTRY METHOD 05/21/2024 1:[address] [facility] Calcium 8.9 8.5 - 10.5 mg/dL LAB CHEMISTRY METHOD 05/21/2024 1:50 PM EDT [facility] AST (SGOT) 10 10 - 42 unit/L LAB CHEMISTRY METHOD 05/21/2024 1:50 PM EDT [facility] ALT (SGPT) 16 10 - 60 unit/L LAB CHEMISTRY METHOD 05/21/2024 1:50 PM EDT [facility] Alkaline Phosphatase 103 42 - 121 unit/L LAB CHEMISTRY METHOD 05/21/2024 1:50 PM EDT [facility] Total Protein 5.8(L) 6.0 - 8.0 g/dL LAB CHEMISTRY METHOD 05/21/2024 1:50 PM EDT [facility] Albumin 2.7(L) 3.2 - 5.0 g/dL LAB CHEMISTRY METHOD 05/21/2024 1:50 PM EDT [facility] Total Bilirubin 0.4 0.0 - 1.4 mg/dL LAB CHEMISTRY METHOD 05/21/2024 1:50 PM EDT [facility] Blood Venous blood specimen / Unknown Venipuncture / Unknown 05/21/2024 5:58 AM EDT 05/21/2024 10:05 AM EDT Flaco Moser MD LAB BLOOD ORDERABLES Final Res ult [facility] [address] [place] [address], documented in this encounter Visit Diagnoses Diagnosis Encounter for other general examination documented in this encounter Care Teams Vertical Contour Band Saw Operator Relationship Specialty Start Date End Date Flaco Moser MD [address] [place] [phone] PCP - General Internal Medicine 05/08/24 documented as of this encounter
--- OUTSIDE RECORDS SUMMARY | 2024-07-10 14:35 | XMS_ITS | Encounter Summary ---
Author Organization [facility] Address [address] [place] [address] Care Team Providers Care Log Brander Name Role Phone Flaco Moser MD Primary Care Provider [phone] Encounter Details Date Type Department Care Team (Late st Contact Info) Description 05/11/2024 Lab Requisition [facility] - Main Lab [address] [facility] [place] [address] Flaco Moser MD [address] [place] [address] [phone] Encounter for other general examination Social History [...] URINALYSIS WITH REFLEX MICROSCOPIC AND CULTURE Routine 05/10/2024 2:00 PM EST Encounter for other general examination CHEN URINE CULTURE TUBE Routine 05/10/2024 2:00 PM EST Encounter for other general examination URINALYSIS WITH REFLEX MICROSCOPIC AND CULTURE Routine 05/10/2024 2:00 PM EST Encounter for other general examination CULTURE URINE Routine 05/10/2024 2:00 PM EST Encounter for other general examination documented in this encounter Results * Culture urine (05/10/2024 2:00 PM EST) Culture, Urine >100,000 CFU/mL Mixed bacterial morphotypes present suggestive of possible contamination during collection. Suggest appropriate recollection if clinically indicated. 05/12/2024 9:[address] [facility] Urine Urine specimen from urethra / Unknown 05/10/2024 2:00 PM EST 05/11/2024 12:12 PM EST Flaco Moser MD LAB MICROBIOLOGY - GENERAL ORD ERABLES Final Result [facility] [address] [place] [address], [place] [phone] * (ABNORMAL) Urinalysis with reflex microscopic and culture (05/10/2024 2:00 PM EST) Specific [place] Urine 1.026 1.003 - 1.030 LAB URINALYSIS - AUTOMATED METHOD 05/11/2024 12:[address] [facility] pH, Urine 8.5(A) 5.0 - 8.0 pH LAB URINALYSIS - AUTOMATED METHOD 05/11/2024 12:[address] [facility] Leukocytes, Urine Small(A) Negative LAB URINALYSIS - AUTOMATED METHOD 05/11/2024 12:[address] [facility] Nitrite, Urine Positive(A) Negative LAB URINALYSIS - AUTOMATED METHOD 05/11/2024 12:[address] [facility] Protein, Urine 30(A) <=Trace mg/dL LAB URINALYSIS - AUTOMATED METHOD 05/11/2024 12:[address] [facility] Glucose, Urine Negative Negative mg/dL LAB URINALYSIS - AUTOMATED METHOD 05/11/2024 12:[address] [facility] Ketones, Urine Negative Negative mg/dL LAB URINALYSIS - AUTOMATED METHOD 05/11/2024 12:[address] [facility] Urobilinogen , Urine 1.0 0.2 - 1.0 mg/dL LAB URINALYSIS - AUTOMATED METHOD 05/11/2024 12:[address] [facility] Bilirubin, Urine Negative Negative LAB URINALYSIS - AUTOMATED METHOD 05/11/2024 12:[address] [facility] Blood, Urine Negative Negative LAB URINALYSIS - AUTOMATED METHOD 05/11/2024 12:[address] [facility] RBC, Urine 1.2 0 - 4 /HPF LAB URINALYSIS - AUTOMATED METHOD 05/11/2024 12:[address] [facility] WBC, Urine 4.3(H) 0 - 4 /HPF LAB URINALYSIS - AUTOMATED METHOD 05/11/2024 12:[address] [facility] Squamous Epithelial, Urine >100(H) 0 - 60 /LPF LAB URINALYSIS - AUTOMATED METHOD 05/11/2024 12:[address] [facility] Bacteria, Urine Many(A) Negative /HPF LAB URINALYSIS - AUTOMATED METHOD 05/11/2024 12:[address] [facility] Hyaline Casts, Urine 0.00 0 - 3 /LPF LAB URINALYSIS - AUTOMATED METHOD 05/11/2024 12:[address] [facility] Urine Urine specimen from urethra / Unknown 05/10/2024 2:00 PM EST 05/11/2024 10:48 AM EST us Flaco Moser MD LAB URINE ORDERABLES Final Res ult [facility] [address] [place] [address], * Chen urine culture tube (05/10/2024 2:00 PM EST) Extra Tube Hold for add-ons. 05/11/2024 12:[address] [facility] Comment:Auto resulted. Urine Urine specimen from urethra / Unknown 05/10/2024 2:00 PM EST 05/11/2024 10:48 AM EST us Flaco Moser MD LAB URINE ORDERABLES Final Res ult [facility] [address] [place] [address], documented in this encounter Visit Diagnoses Diagnosis Encounter for other general examination documented in this encounter Care Teams Log Brander Relationship Specialty Start Date End Date Flaco Moser MD [address] [place] [phone] PCP - General Internal Medicine 05/08/24 documented as of this encounter
--- OUTSIDE RECORDS SUMMARY | 2024-07-10 14:35 | XMS_ITS | Clinical Summary ---
Author Organization [address] Address [address] [place] [address] Phone Care Team Providers Care Belt Builder Helper Name Role Phone Flaco Moser MD Primary Care Provider [phone] Encounters Date Type Department Care Team Description 05/21/2024 Lab Requisition [facility] Lab [address] [place] [phone] Flaco Moser MD Encounter for other general examination 05/17/2024 Lab Requisition [facility] Lab [address] [place] [address] Flaco Moser MD Encounter for other general examination 05/15/2024 Lab Requisition [facility] Lab [address] [place] [address] Flaco Moser MD Encounter for other general examination 05/13/2024 Lab Requisition [facility] Lab [address] [place] [address] Flaco Moser MD Encounter for other general examination 05/13/2024 Lab Requisition [facility] Lab [address] [place] [address] Flaco Moser MD Encounter for other general examination 05/11/2024 Lab Requisition [facility] Lab [address] [place] [address] Flaco Moser MD Encounter for other general examination 05/11/2024 Lab Requisition [facility] Lab [address] [place] [phone] Flaco Moser MD Encounter for other general examination 05/08/2024 Lab Requisition [facility] [address] [facility] [place] [address] Flaco Moser MD Encounter for other general examination from Last 3 Months Social History Tobacco Use Types Packs/Day Years Used Date Smoking Tobacco: Never Assessed Comments Unknown Sex and Gender Information Value Date Recorded Sex Assigned at Not on file Legal Sex Female 12:45 PM EST Gender Identity Not on file Sexual Orientation Not on file Plan of Treatment Health Maintenance Due Date Last Done Comments DTaP,Tdap,and Td Vaccines (1 - Tdap) 1957 Pneumococcal Vaccine: 50+ Ye ars (1 of 1 - PCV) 1988 Zoster Vaccines (1 of 2) 1988 RSV Immunization Adult Patie nts (1 - 1-dose 75+ series) 2013 COVID-19 Vaccine ( - 2023-2 5 season) 2023 Depression Screening 05/08/2024 Falls Risk Assessment 05/08/2024 Medicare Annual Wellness Visit 05/08/2024 Osteoporosis Screening (Bone Density Screening) 05/08/2024 Social Influencers of Health Screening 05/08/2024 Influenza Vaccine (Season Ended) 2024 HIB Vaccines Aged Out No longer eligi ble based on patient's age to complete this topic HPV Vaccines Aged Out No longer eligi ble based on patient's age to complete this topic Hepatitis A Vaccines Aged Out No long er eligible based on patient's age to complete this topic Hepatitis B Vaccines Aged Out No long er eligible based on patient's age to complete this topic IPV Vaccines Aged Out No longer eligi ble based on patient's age to complete this topic MMR Vaccines Aged Out No longer eligi ble based on patient's age to complete this topic Meningococcal ACWY Vaccine Aged Out N o longer eligible based on patient's age to complete this topic Meningococcal B Vaccine Aged Out No l onger eligible based on patient's age to complete this topic RSV Immunization Patients Un rome 20 months Aged Out No longer eligible b ased on patient's age to complete this topic Varicella Vaccines Aged Out No longer eligible based on patient's age to complete this topic Procedures Procedure Name Priority Date/Time Associated Diagnosis Comments COMPLETE BLOOD COUNT Routine 05/21/2024 5:58 AM EDT Encounter for other general examination COMPREHENSIVE METABOLIC PANEL Routine 05/21/2024 5:58 AM EDT Encounter for other general examination COMPLETE BLOOD COUNT Routine 05/17/2024 5:22 AM EDT Encounter for other general examination COMPREHENSIVE METABOLIC PANEL Routine 05/17/2024 5:22 AM EDT Encounter for other general examination URINALYSIS [...] PM EDT Encounter for other general examination COMPLETE BLOOD COUNT Routine 05/13/2024 6:49 AM EDT Encounter for other general examination COMPREHENSIVE METABOLIC PANEL Routine 05/13/2024 6:49 AM EDT Encounter for other general examination URINALYSIS WITH REFLEX MICROSCOPIC AND CULTURE Routine 05/13/2024 5:00 AM EDT Encounter for other general examination CHEN URINE CULTURE TUBE Routine 05/13/2024 5:00 AM EDT Encounter for other general examination URINALYSIS WITH REFLEX MICROSCOPIC AND CULTURE Routine 05/13/2024 5:00 AM EDT Encounter for other general examination CULTURE URINE Routine 05/13/2024 5:00 AM EDT Encounter for other general examination COMPLETE BLOOD COUNT Routine 05/11/2024 6:21 AM EST Encounter for other general examination COMPREHENSIVE METABOLIC PANEL Routine 05/11/2024 6:21 AM EST Encounter for other general examination URINALYSIS [...] PM EST Encounter for other general examination CBC WITH AUTO DIFFERENTIAL Routine 05/08/2024 6:13 AM EST Encounter for other general examination MAGNESIUM Routine 05/08/2024 6:13 AM EST Encounter for other general examination CBC AND DIFFERENTIAL Routine 05/08/2024 6:13 AM EST Encounter for other general examination COMPREHENSIVE METABOLIC PANEL Routine 05/08/2024 6:13 AM EST Encounter for other general examination from Last 3 Months Results * (ABNORMAL) Complete blood count (05/21/2024 5:58 AM EDT) Only the most recent of4 resultswithin the time period is included. WBC 4.2(L) 4.8 - 10.8 K/mcL LAB HEMETOLOGY METHOD 05/21/2024 1:18 PM EDT [facility] RBC 3.80 3.80 - 4.80 M/mcL LAB HEMETOLOGY METHOD 05/21/2024 1:18 PM EDT [facility] Hemoglobin 11.7 11.5 - 16.0 g/dL LAB HEMETOLOGY METHOD 05/21/2024 1:18 PM EDT [facility] Hematocrit 36.3 35.0 - 47.0 % LAB HEMETOLOGY METHOD 05/21/2024 1:18 PM EDT [facility] MCV 94.8 79.0 - 98.0 FL LAB HEMETOLOGY METHOD 05/21/2024 1:18 PM EDT [facility] MCH 30.5 27.0 - 32.0 pcg LAB HEMETOLOGY METHOD 05/21/2024 1:18 PM EDT [facility] MCHC 32.2 32.0 - 37.0 g/dL LAB HEMETOLOGY METHOD 05/21/2024 1:18 PM EDT [facility] RDW 13.1 11.0 - 15.0 % LAB HEMETOLOGY METHOD 05/21/2024 1:18 PM EDT [facility] Platelets 432(H) 130 - 400 K/mcL LAB HEMETOLOGY METHOD 05/21/2024 1:18 PM EDT [facility] MPV 8.8 7.0 - 11.0 FL LAB HEMETOLOGY METHOD 05/21/2024 1:18 PM EDT [facility] NRBC 0.0 <1.0 % LAB HEMETOLOGY METHOD 05/21/2024 1:18 PM EDT [facility] NRBC Absolute 0.00 <0.10 K/mcL LAB HEMETOLOGY METHOD 05/21/2024 1:18 PM EDT [facility] Blood Venous blood specimen / Unknown Venipuncture / Unknown 05/21/2024 5:58 AM EDT 05/21/2024 10:05 AM EDT us Flaco Moser MD LAB BLOOD ORDERABLES Final Res ult [facility] [address] [place] [address], * (ABNORMAL) Comprehensive metabolic panel (05/21/2024 5:58 AM EDT) Only the most recent of5 resultswithin the time period is included. Sodium 140 133 - 145 mmol/L LAB CHEMISTRY METHOD 05/21/2024 1:[address] [facility] Potassium 3.9 3.5 - 5.5 [...] 05/21/2024 1:[address] [facility] eGFR 95 >=60 mL/min/1. 73m2 LAB CHEMISTRY METHOD 05/21/2024 1:[address] [facility] Comment:Calculation based on the??Chronic Kidney Disease Epidemiology Collaboration (CKD-EPI) equation refit??without adjustment for race. BUN/Creatinine Ratio 18.6 LAB CHEMISTRY METHOD 05/21/2024 1:[address] [facility] Calcium 8.9 8.5 - 10.5 mg/dL LAB CHEMISTRY METHOD 05/21/2024 1:[address] [facility] AST (SGOT) 10 10 - 42 unit/L LAB CHEMISTRY METHOD 05/21/2024 1:50 PM EDT [facility] ALT (SGPT) 16 10 - 60 unit/L LAB CHEMISTRY METHOD 05/21/2024 1:50 PM EDT [facility] Alkaline Phosphatase 103 42 - 121 unit/L LAB CHEMISTRY METHOD 05/21/2024 1:50 PM EDT [facility] Total Protein 5.8(L) 6.0 - 8.0 g/dL LAB CHEMISTRY METHOD 05/21/2024 1:50 PM EDT [facility] Albumin 2.7(L) 3.2 - 5.0 g/dL LAB CHEMISTRY METHOD 05/21/2024 1:50 PM EDT [facility] Total Bilirubin 0.4 0.0 - 1.4 mg/dL LAB CHEMISTRY METHOD 05/21/2024 1:50 PM EDT [facility] Blood Venous blood specimen / Unknown Venipuncture / Unknown 05/21/2024 5:58 AM EDT 05/21/2024 10:05 AM EDT us Flaco Moser MD LAB BLOOD ORDERABLES Final Res ult [facility] [address] [place] [address], [place] [phone] * (ABNORMAL) Urinalysis with reflex microscopic and culture (05/14/2024 6:00 PM EDT) Only the most recent of3 resultswithin the time period is included. Specific [place] Urine 1.037(H) 1.003 - 1.030 LAB URINALYSIS - AUTOMATED METHOD 05/15/2024 12:57 PM EDT [facility] pH, Urine 5.5 5.0 - 8.0 pH LAB URINALYSIS - AUTOMATED METHOD 05/15/2024 12:57 PM EDT [facility] Leukocytes, Urine Moderate(A) Negative LAB URINALYSIS - AUTOMATED METHOD 05/15/2024 12:[address] [facility] Nitrite, Urine Positive(A) Negative LAB URINALYSIS - AUTOMATED METHOD 05/15/2024 12:[address] [facility] Protein, Urine 30(A) <=Trace mg/dL LAB URINALYSIS - AUTOMATED METHOD 05/15/2024 12:[address] [facility] Glucose, Urine Negative Negative mg/dL LAB URINALYSIS - AUTOMATED METHOD 05/15/2024 12:[address] [facility] Ketones, Urine Trace(A) Negative mg/dL LAB URINALYSIS - AUTOMATED METHOD 05/15/2024 12:[address] [facility] Urobilinogen , Urine 1.0 0.2 - 1.0 mg/dL LAB URINALYSIS - AUTOMATED METHOD 05/15/2024 12:[address] [facility] Bilirubin, Urine Negative Negative LAB URINALYSIS - AUTOMATED METHOD 05/15/2024 12:[address] [facility] Blood, Urine Negative Negative LAB URINALYSIS - AUTOMATED METHOD 05/15/2024 12:[address] [facility] RBC, Urine 3.2 0 - 4 /HPF LAB URINALYSIS - AUTOMATED METHOD 05/15/2024 12:[address] [facility] WBC, Urine 161.2(H) 0 - 4 /HPF LAB URINALYSIS - AUTOMATED METHOD 05/15/2024 12:[address] [facility] Squamous Epithelial, Urine >100(H) 0 - 60 /LPF LAB URINALYSIS - AUTOMATED METHOD 05/15/2024 12:[address] [facility] Bacteria, Urine Many(A) Negative /HPF LAB URINALYSIS - AUTOMATED METHOD 05/15/2024 12:[address] [facility] Hyaline Casts, Urine 9.5(H) 0 - 3 /LPF LAB URINALYSIS - AUTOMATED METHOD 05/15/2024 12:57 PM EDT [facility] Urine Urine specimen obtained by clean catch procedure / Unknown Non-blood Collection / Unknown 05/14/2024 6:00 PM EDT 05/15/2024 10:30 AM EDT Flaco Moser MD LAB URINE ORDERABLES Final Res ult Performing Organization Address [facility]/ZIP Co de Phone Number [facility] [address] [place] [address], [place] [phone] * Chen urine culture tube (05/14/2024 6:00 PM EDT) Only the most recent of3 resultswithin the time period is included. Extra Tube Hold for add-ons. 05/15/2024 12:02 PM EDT [facility] Comment:Auto resulted. Urine Urine specimen obtained by clean catch procedure / Unknown Non-blood Collection / Unknown 05/14/2024 6:00 PM EDT 05/15/2024 10:30 AM EDT Flaco Moser MD LAB URINE ORDERABLES Final Res ult Performing Organization Address [facility] de Phone Number [facility] [address] [place] [address], [place] [phone] * (ABNORMAL) Culture urine (05/14/2024 6:00 PM EDT) Only the most recent of3 resultswithin the time period is included. Culture, Urine >100,000 CFU/mL Escherichia coli(A) MARILY 05/18/2024 11:12 AM EDT [facility] Comment: The organism value for this result has been updated. These results have been appended to the previously preliminary verified report. Urine Urine specimen obtained by clean catch procedure / Unknown Non-blood Collection / Unknown 05/14/2024 6:00 PM EDT 05/15/2024 12:57 PM EDT Narrative [facility] - 05/18/2024 11:12 AM EDT [...] MICROBIOLOGY - GENERAL ORD ERABLES Final Result [facility] [address] [place] [address], [place] [phone] * (ABNORMAL) CBC auto differential (05/08/2024 6:13 AM EST) WBC 8.4 4.8 - 10.8 K/mcL LAB HEMETOLOGY METHOD 05/08/2024 10:28 AM EST [facility] RBC 4.10 3.80 - 4.80 M/mcL LAB HEMETOLOGY METHOD 05/08/2024 10:28 AM EST [facility] Hemoglobin 12.4 11.5 - 16.0 g/dL LAB HEMETOLOGY METHOD 05/08/2024 10:28 AM EST [facility] Hematocrit 37.3 35.0 - 47.0 % LAB HEMETOLOGY METHOD 05/08/2024 10:28 AM [facility] MCV 91.6 79.0 - 98.0 FL LAB HEMETOLOGY METHOD 05/08/2024 10:28 AM [facility] MCH 30.5 27.0 - 32.0 pcg LAB HEMETOLOGY METHOD 05/08/2024 10:28 AM [facility] MCHC 33.2 32.0 - 37.0 g/dL LAB HEMETOLOGY METHOD 05/08/2024 10:28 AM [facility] RDW 12.8 11.0 - 15.0 % LAB HEMETOLOGY METHOD 05/08/2024 10:28 AM [facility] Platelets 265 130 - 400 K/mcL LAB HEMETOLOGY METHOD 05/08/2024 10:28 AM [facility] MPV 9.5 7.0 - 11.0 FL LAB HEMETOLOGY METHOD 05/08/2024 10:28 AM [facility] NRBC 0.0 <1.0 % LAB HEMETOLOGY METHOD 05/08/2024 10:28 AM [facility] NRBC Absolute 0.00 <0.10 K/mcL LAB HEMETOLOGY METHOD 05/08/2024 10:28 AM [facility] Neutrophils Relative 63.2 % LAB HEMETOLOGY METHOD 05/08/2024 10:28 AM [facility] Lymphocytes Relative 18.8 % LAB HEMETOLOGY METHOD 05/08/2024 10:28 AM [facility] Monocytes Relative 14.3 % LAB HEMETOLOGY METHOD 05/08/2024 10:28 AM [facility] Eosinophils Relative 2.5 % LAB HEMETOLOGY METHOD 05/08/2024 10:28 AM [facility] Basophils Relative 0.6 % LAB HEMETOLOGY METHOD 05/08/2024 10:28 AM EST [facility] Immature Granulocytes Relative 0.6 % LAB HEMETOLOGY METHOD 05/08/2024 10:28 AM EST [facility] Neutrophils Absolute 5.31 1.50 - 7.00 K/mcL LAB HEMETOLOGY METHOD 05/08/2024 10:28 AM [facility] Lymphocytes Absolute 1.58 1.00 - 5.00 K/mcL LAB HEMETOLOGY METHOD 05/08/2024 10:28 AM [facility] Monocytes Absolute 1.20(H) 0.20 - 1.00 K/mcL LAB HEMETOLOGY METHOD 05/08/2024 10:28 AM [facility] Eosinophils Absolute 0.21 0.00 - 0.50 K/mcL LAB HEMETOLOGY METHOD 05/08/2024 10:28 AM [facility] Basophils Absolute 0.05 0.00 - 0.20 K/mcL LAB HEMETOLOGY METHOD 05/08/2024 10:28 AM [facility] Immature Granulocytes Absolute 0.05(H) 0.00 - 0.03 K/mcL LAB HEMETOLOGY METHOD 05/08/2024 10:28 AM [facility] Blood Venous blood specimen / Unknown Venipuncture / Unknown 05/08/2024 6:13 AM EST 05/08/2024 9:15 AM EST us Flaco Moser MD LAB BLOOD ORDERABLES Final Res ult [facility] [address] [place] [address], * (ABNORMAL) Magnesium (05/08/2024 6:13 AM EST) Magnesium 1.8(L) 1.9 - 2.6 mg/dL LAB CHEMISTRY METHOD 05/08/2024 10:52 AM EST [facility] Blood Venous blood specimen / Unknown Venipuncture / Unknown 05/08/2024 6:13 AM EST 05/08/2024 9:15 AM EST Flaco Moser MD LAB BLOOD ORDERABLES Final Res ult [facility] [address] [place] [address], from Last 3 Months Insurance MEDICARE [facility] Care Teams Belt Builder Helper Relationship Specialty Start Date End Date Flaco Moser MD [address] [place] [id number] PCP - General Internal Medicine 05/08/24
--- OUTSIDE RECORDS SUMMARY | 2024-07-10 14:36 | XMS_ITS | Continuity of Care Document ---
Author Organization [facility] Address [address] [place] [address] Phone Care Team Providers Care Shoe Puller Name Role Phone Unavailable Unavailable Unavailable Medications Medication Instructions Dosage Effective Dates (start - stop) Status Comments amlodipine 5 mg-benazepril 10 mg capsule take 1 capsule by oral route every day 1.00 capsule - Active zolpidem 10 mg tablet take 1 tablet by oral route every day at bedtime 10 MG - Active donepezil 10 mg tablet take 1 tablet by oral route every day in the evening 10 MG - Active ICaps 3,300 unit-5 mg-200mg-75 unit tablet,extended release - Active Procedures Procedure Date Offic/outpt E&m [place] [address] 4 Dilated Macular Examination Performed Pr Intravitreal Inj-agent (sep Pr 14 Bevcizumab Avastin Flourescein Angiogram Flourescein Angiogram Indocyanine-green Angio W/i & 4 Scan Computerized; Retina Advance Directives Directive Yes / No Effective Date File Name No Information Encounters Encounter Description Practice Location Reason(s) For Visit Diagnoses Date Provider Providers Copied on Encounter [facility], [address] [place], [place], [id number], [place] tel:[phone] [facility] No Information 8 No Information Offic/outpt E&m [facility] [address] [facility] [employer] [facility], [address] [place] [address], [id number], [place] tel:[phone] [facility] [place] Macular Degen, Exud SenMacul ar Degen, Dry Macular Degen, Exud SenMacul ar Degen, Dry 4 Rachel De Jesus. [address] [place] [address], [id number], . tel:[phone] Referring Provider: Neal aRmos, [address], [place], [address] . tel:[phone] Family History Family Member Type Diagnosis Age At Onset No Information Payers Payer name Insurance type Covered constitution party ID Authoriza tion(s) [place] [id number] [facility] Supplemental Claims Dept [id number] Social History Type Description Quantity Date Captured Comments Sex Female Smoking Status No Information Chief Complaint And Reason For Visit No Information Reason For Referral Reason For Referral No Information History Of Present Illness Encounter Date Complaint History Of Prese nt Illness No Information Functional Status Date Functional Assessmen t No Information Instructions Date Instruction Additional Infor kelli - patient returning to established care 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 has active CNV lesion noted today with significant SRF collection but maintains good vision. 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 cont AREDS Related to Macular Degeneration, Dry Assessments Type Assessment Date No Information Patient Care Teams Name Effective Dates (start - stop) Status Members No Information
--- OUTSIDE RECORDS SUMMARY | 2024-07-10 14:36 | XMS_ITS | Continuity of Care Document ---
Author Organization [facility] Address [address] [place] [address]- Care Team Providers Care Wellness Nurse Name Role Phone Jacqueline Rahman NP Primary Care Physician [phone] Encounter [facility] Date(s): 06/07/24 - 07/07/24 [facility] [address] [place] [address]- Encounter Type: Triage Allergies, Adverse Reactions, Alerts No Known Allergies Immunizations Given and Recorded Vaccine Date Status Refusal Reason influenza virus vaccine, inactivated 01/11/24 Wiliam rded influenza virus vaccine, inactivated 02/02/23 Wiliam rded influenza virus vaccine, inactivated 12/16/21 Wiliam rded influenza virus vaccine, inactivated 12/30/20 Wiliam rded influenza virus vaccine, inactivated 12/06/19 Wiliam rded influenza virus vaccine, inactivated 12/27/18 Wiliam rded influenza virus vaccine, inactivated 12/15/17 Wiliam rded influenza virus vaccine, inactivated 1 12/24/16 Gi ana maría influenza virus vaccine, inactivated 01/08/16 Give n influenza virus vaccine, inactivated 12/19/14 Give n influenza virus vaccine, inactivated 12/20/13 Give n influenza virus vaccine, inactivated 2 12/23/11 Gi ana maría influenza virus vaccine, inactivated 12/17/10 Give n influenza virus vaccine, inactivated 01/14/06 Give n pneumococcal 20-valent conjugate vaccine 3 03/10/23 Given [id number] 12y+ bivalent booster vax 02/05/22 Recorded SARS-CoV-2 (COVID-19) mRNA BNT-162b2 vac 12/09/20 Recorded SARS-CoV-2 (COVID-19) mRNA BNT-162b2 vac 05/12/20 Recorded SARS-CoV-2 (COVID-19) mRNA BNT-162b2 vac 04/21/20 Recorded pneumococcal 13-valent vaccine 12/19/14 Given Influenza Virus Vaccine (oldterm) 4 01/29/08 Given Pneumococcal Vaccine (oldterm) 05/26/04 Given diphtheria-tetanus toxoids (DT) 05/26/04 Given 1Result Comment: [id number] 2Admin Note: VIS GIVEN 3Result Comment: PCV 20 [facility] [id number] 4Admin Note: VIM 09/03/05 MANUFACTURED [employer]OFI PA[employer]UR Problem List Condition Confirmation Course Effective Dates Status H ealth Status Informant Arthritis Confirmed Active Atrophic vaginitis Confirmed Active Herpetic lesion Confirmed Active Hyperlipidemia Confirmed Active Hypertension Confirmed Active Mixed incontinence Confirmed Active Nocturia Confirmed Active Osteopenia 1 Confirmed 01/30/13 Active Pins and needles sensation Confirmed Active Urethral caruncle Confirmed Active Urinary incontinence Confirmed Active Vaginal prolapse Confirmed Active 1[place] Vital Signs Most recent to oldest [Reference Range]: 1 Pulse Rate [55-90 bpm] 80 bpm 1 (06/07/24 8:00 AM) Blood Pressure [90-138/55-84 mm Hg] 110/ 66mm Hg 2 (06/07/24 8:00 AM) 1Result Comment: Home reading* 2Result Comment: Home Bp reading* Social History Social History Type Response Smoking Status Former smoker; Other : quit 1998; entered on: 06/20/14 Sex Sex Representation Female (finding) Patient Care team information Care Team Personnel Name: Robel Stauffer MD Position: [facility] Renal MD Member Role: Lifetime Consulting Physician Address: [address] [place], [place] [id number] [place] [address]- Telecom: Name: Jacqueline Rahman NP Position: [facility] PCO Associate Professional Member Role: PCP Address: [address] [place] [address] [address] [place], [place] [address] Telecom: Name: Hayley Aparicio RN Position: S RN Member Role: Primary Care Nurse Name: Adelita Thompson RN Position: S RN Member Role: Primary Care Nurse Care Team Related Persons Name: HERNÁN ELMORE Insurance Providers Guarantor name: CORTESMODESTA BECKER [facility] Information #: 1 Payer: MEDICARE PART B OUTPT Member Number: NA Policy Number: NA Group Number: NA Health Plan Information #: 2 Payer: MEDEX Member Number: NA Policy Number: NA Group Number: NA
--- OUTSIDE RECORDS SUMMARY | 2024-07-10 14:36 | XMS_ITS | Encounter Summary ---
Author Organization [facility] Address [address] [place] [address] Care Team Providers Care Coding Spec Name Role Phone Flaco Moser MD Primary Care Provider [phone] Encounter Details Date Type Department Care Team (Late st Contact Info) Description 05/17/2024 Lab Requisition [facility] - Main Lab [address] [place] [address] Flaco Moser MD [address] [place] [phone] Encounter for other general examination Social History [...] Associated Diagnosis Comments COMPLETE BLOOD COUNT Routine 05/17/2024 5:22 AM EDT Encounter for other general examination COMPREHENSIVE METABOLIC PANEL Routine 05/17/2024 5:22 AM EDT Encounter for other general examination documented in this encounter Results * (ABNORMAL) Complete blood count (05/17/2024 5:22 AM EDT) [facility] Signature WBC 5.0 4.8 - 10.8 K/[facility] LAB HEMETOLOGY METHOD 05/17/2024 9:31 AM EDT [facility] RBC 3.70(L) 3.80 - 4.80 M/[facility] LAB HEMETOLOGY METHOD 05/17/2024 9:31 AM [facility] LAB Hemoglobin 11.3(L) 11.5 - 16.0 g/dL LAB HEMETOLOGY METHOD 05/17/2024 9:31 AM [facility] LAB Hematocrit 34.5(L) 35.0 - 47.0 % LAB HEMETOLOGY METHOD 05/17/2024 9:31 AM [facility] LAB MCV 92.7 79.0 - 98.0 FL LAB HEMETOLOGY METHOD 05/17/2024 9:31 AM [facility] LAB MCH 30.4 27.0 - 32.0 pcg LAB HEMETOLOGY METHOD 05/17/2024 9:31 AM [facility] LAB MCHC 32.8 32.0 - 37.0 g/dL LAB HEMETOLOGY METHOD 05/17/2024 9:31 AM [facility] LAB RDW 12.7 11.0 - 15.0 % LAB HEMETOLOGY METHOD 05/17/2024 9:31 AM [facility] LAB Platelets 458(H) 130 - 400 K/mcL LAB HEMETOLOGY METHOD 05/17/2024 9:31 AM [facility] LAB MPV 8.7 7.0 - 11.0 FL LAB HEMETOLOGY METHOD 05/17/2024 9:31 AM [facility] LAB NRBC 0.0 <1.0 % LAB HEMETOLOGY METHOD 05/17/2024 9:31 AM [facility] LAB NRBC Absolute 0.00 <0.10 K/mcL LAB HEMETOLOGY METHOD 05/17/2024 9:31 AM [facility] LAB Blood Venous blood specimen / Unknown Venipuncture / Unknown 05/17/2024 5:22 AM EDT 05/17/2024 8:47 AM EDT Flaco Moser MD LAB BLOOD ORDERABLES Final Res ult [facility] [address] [place] [address], * (ABNORMAL) Comprehensive metabolic panel (05/17/2024 5:22 AM EDT) Sodium 136 133 - 145 mmol/L LAB CHEMISTRY METHOD 05/17/2024 10:01 AM [facility] LAB Potassium 4.1 3.5 - 5.5 mmol/L LAB CHEMISTRY METHOD 05/17/2024 10:01 AM [facility] LAB Chloride 102 96 - 110 mmol/L LAB CHEMISTRY METHOD 05/17/2024 10:01 AM [facility] LAB CO2 28 21 - 32 mmol/L LAB CHEMISTRY METHOD 05/17/2024 10:01 AM [facility] LAB Anion Gap 6 3 - 11 LAB CHEMISTRY METHOD 05/17/2024 10:01 AM [facility] LAB Glucose 88 70 - 100 mg/dL LAB CHEMISTRY METHOD 05/17/2024 10:01 AM [facility] LAB BUN 15 5 - 25 mg/dL LAB CHEMISTRY METHOD 05/17/2024 10:01 AM [facility] LAB Creatinine 0.47(L) 0.50 - 1.10 mg/dL LAB CHEMISTRY METHOD 05/17/2024 10:01 AM [facility] LAB eGFR 93 >=60 mL/min/1. 73m2 LAB CHEMISTRY METHOD 05/17/2024 10:01 AM [facility] LAB Comment:Calculation based on the??Chronic Kidney Disease Epidemiology Collaboration (CKD-EPI) equation refit??without adjustment for race. BUN/Creatinine Ratio 31.9 LAB CHEMISTRY METHOD 05/17/2024 10:01 AM [facility] LAB Calcium 8.8 8.5 - 10.5 mg/dL LAB CHEMISTRY METHOD 05/17/2024 10:01 AM [facility] LAB AST (SGOT) 14 10 - 42 unit/L LAB CHEMISTRY METHOD 05/17/2024 10:01 AM [facility] LAB ALT (SGPT) 19 10 - 60 unit/L LAB CHEMISTRY METHOD 05/17/2024 10:01 AM [facility] LAB Alkaline Phosphatase 97 42 - 121 unit/L LAB CHEMISTRY METHOD 05/17/2024 10:01 AM [facility] LAB Total Protein 5.7(L) 6.0 - 8.0 g/dL LAB CHEMISTRY METHOD 05/17/2024 10:01 AM [facility] LAB Albumin 2.6(L) 3.2 - 5.0 g/dL LAB CHEMISTRY METHOD 05/17/2024 10:01 AM [facility] LAB Total Bilirubin 0.4 0.0 - 1.4 mg/dL LAB CHEMISTRY METHOD 05/17/2024 10:01 AM [facility] LAB Blood Venous blood specimen / Unknown Venipuncture / Unknown 05/17/2024 5:22 AM EDT 05/17/2024 8:47 AM EDT us Flaco Moser MD LAB BLOOD ORDERABLES Final Res ult [facility] [address] [place] [address], documented in this encounter Visit Diagnoses Diagnosis Encounter for other general examination documented in this encounter Care Teams Coding Spec Relationship Specialty Start Date End Date Flaco Moser MD [address] [place] [phone] PCP - General Internal Medicine 05/08/24 documented as of this encounter
--- OUTSIDE RECORDS SUMMARY | 2024-07-10 14:36 | XMS_ITS | Continuity of Care Document ---
Author Organization [facility] Address [address] [place] [address]- Care Team Providers Care Xm1 Tank Driver Name Role Phone Jacqueline Rahman NP Primary Care Physician [place] [facility] [place]05[place] - 07/05/24 [facility] [address] [place] [address]- Attending Physician: Ben Lobo Admitting Physician: AdmtrBen Referring Physician: AdmtrBen Encounter Type: Triage Allergies, Adverse Reactions, Alerts [...] pneumococcal 20-valent conjugate vaccine 3 03/10/23 Given [id number] 12y+ bivalent booster vax 02/05/22 Recorded SARS-CoV-2 (COVID-19) mRNA BNT-162b2 vac 12/09/20 Recorded SARS-CoV-2 (COVID-19) mRNA BNT-162b2 vac 05/12/20 Recorded SARS-CoV-2 (COVID-19) mRNA BNT-162b2 vac 04/21/20 Recorded pneumococcal 13-valent vaccine 12/19/14 Given Influenza Virus Vaccine (oldterm) 4 01/29/08 Given Pneumococcal Vaccine (oldterm) 05/26/04 Given diphtheria-tetanus toxoids (DT) 05/26/04 Given 1Result Comment: [id number] 2Admin Note: VIS GIVEN 3Result Comment: PCV 20 [facility] [id number] 4Admin Note: VIM 09/03/05 MANUFACTURED SANOFI PASTEUR [...] Confirmed Active Vaginal prolapse Confirmed Active [place] Social History Social History Type Response Smoking Status Former smoker; Other : quit 1998; entered on: 06/20/14 Sex Sex Representation Female (finding) Laboratory * [place] Jessica: PERFORM Event Display: Laboratory Results Scanned Authored Date: MG Breast Views * Event Display: MM Mammogram, Non- BH Authored Date: * Event Display: MM Mammogram, Non- BH Authored Date: * Event Display: MM Mammogram, Non- BH Authored Date: * Event Display: MM Mammogram Authored Date: * Event Display: MM Mammogram Authored Date: Radiology * Event Display: Radiology Result Scanned Authored Date: * Event Display: Radiology Result Scanned Authored Date: * Event Display: Non BH Radiology Results Authored Date: Patient Care team information Care Team Personnel Name: Robel Stauffer MD Position: [facility] Renal Member Role: Lifetime Consulting Physician Address: [address] [place], [place] [address] [place] [address]- [place] Telecom: Name: Jacqueline Rahman NP Position: [facility] PCO Associate Professional Member Role: PCP Address: [address] [place] [phone]- Telecom: Name: Hayley Aparicio RN Position: S RN Member Role: Primary Care Nurse Name: Adelita Thompson RN Position: [facility] RN Member Role: Primary Care Nurse Care Team Related Persons Name: HERNÁN ELMORE Insurance Providers Guarantor name: CORTES BECKER Health Plan Information #: 1 Payer: MEDICARE PART B OUTPT Member Number: NA Policy Number: NA Group Number: NA Health Plan Information #: 2 Payer: MEDEX Member Number: NA Policy Number: NA Group Number: NA
--- OUTSIDE RECORDS SUMMARY | 2024-07-10 14:36 | XMS_ITS | Encounter Summary ---
Author Organization [facility] Address [address] [place] [address] Care Team Providers Care Firer Helper Name Role Phone Flaco Moser MD Primary Care Provider [phone] Encounter Details Date Type Department Care Team (Late st Contact Info) Description 05/13/[address] [facility] - Main Lab [address] [facility] [place] [address] Flaco Moser MD [address] [place] [phone] Encounter for other general examination Social History [...] this encounter Results * (ABNORMAL) Culture urine (05/13/2024 5:00 AM EDT) Culture, Urine >100,000 CFU/mL Escherichia coli(A) MARILY 05/17/2024 7:49 AM EDT [facility] Comment: This is an edited result. Previous organism was Gram negative bacilli on 05/14/2024 at 1146 EDT. Culture, Urine 10,000-49,000 CFU/mL Pseudomonas aeruginosa(A) MARILY 05/17/2024 7:49 AM EDT [facility] Comment: The organism value for this result has been updated. These results have been appended to the previously preliminary verified report. This is an edited result. Previous organism was Gram negative bacilli on 05/15/2024 at 1219 EDT. Culture, Urine >100,000 CFU/mL Aerococcus urinae(A) MARILY 05/17/2024 7:49 AM EDT [facility] Comment: Susceptibility testing not routinely performed. ??If further therapeutic information is required, please consult an infectious disease specialist. The organism value for this result has been updated. These results have been appended to the previously preliminary verified report. This is an edited result. Previous organism was Streptococcus alpha-hemolytic on 05/15/2024 at 1219 EDT. Urine Urinary bladder structure / Unknown Non-blood Collection / Unknown 05/13/2024 5:00 AM EDT 05/13/2024 11:28 AM EDT Narrative Organism Antibiotic Method Susceptibility Escherichia coli Amoxicillin/Clavulanate [...] Nitrofurantoin MARILY <=16 ug/ml: Susceptible Escherichia coli Trimethoprim/Sulfame thox azole MARILY <=20 ug/ml: Susceptible Pseudomonas aeruginosa Ceftazidime MARILY 4 ug/ml: Susceptible Pseudomonas aeruginosa Cefepime MARILY 4 ug/ml: Susceptible Pseudomonas aeruginosa Meropenem MARILY 2 ug/ml: Susceptible Pseudomonas aeruginosa Amikacin MARILY 4 ug/ml: Susceptible Pseudomonas aeruginosa Ciprofloxacin MARILY 0.5 ug/ml: Susceptible Pseudomonas aeruginosa Levofloxacin MARLIY 2 ug/ml: Intermediate Pseudomonas aeruginosa Amikacin DISK DIFFUSION Pseudomonas aeruginosa Cefepime DISK DIFFUSION Pseudomonas aeruginosa Ceftazidime DISK DIFFUSION Pseudomonas aeruginosa Ciprofloxacin DISK DIFFUSION Pseudomonas aeruginosa Levofloxacin DISK DIFFUSION Pseudomonas aeruginosa Meropenem DISK DIFFUSION Pseudomonas aeruginosa Piperacillin/Tazobactam DISK DI FFUSION Susceptible Pseudomonas aeruginosa Tobramycin DISK DIFFUSION us Flaco Moser MD LAB MICROBIOLOGY - GENERAL ORD ERABLES Final Result [facility] [address] [place] [address], [place] [phone] * (ABNORMAL) Urinalysis with reflex microscopic and culture (05/13/2024 5:00 AM EDT) Specific [place] Urine 1.031(H) 1.003 - 1.030 LAB URINALYSIS - AUTOMATED METHOD 05/13/2024 11:28 AM [facility] pH, Urine 8.0 5.0 - 8.0 pH LAB URINALYSIS - AUTOMATED METHOD 05/13/2024 11:28 AM [facility] Leukocytes, Urine Small(A) Negative LAB URINALYSIS - AUTOMATED METHOD 05/13/2024 11:28 AM [facility] Nitrite, Urine Positive(A) Negative LAB URINALYSIS - AUTOMATED METHOD 05/13/2024 11:28 AM [facility] Protein, Urine 30(A) <=Trace mg/dL LAB URINALYSIS - AUTOMATED METHOD 05/13/2024 11:28 AM [facility] Glucose, Urine Negative Negative mg/dL LAB URINALYSIS - AUTOMATED METHOD 05/13/2024 11:28 AM [facility] Ketones, Urine Negative Negative mg/dL LAB URINALYSIS - AUTOMATED METHOD 05/13/2024 11:28 AM [facility] Urobilinogen , Urine 1.0 0.2 - 1.0 mg/dL LAB URINALYSIS - AUTOMATED METHOD 05/13/2024 11:28 AM [facility] Bilirubin, Urine Negative Negative LAB URINALYSIS - AUTOMATED METHOD 05/13/2024 11:28 AM [facility] Blood, Urine Negative Negative LAB URINALYSIS - AUTOMATED METHOD 05/13/2024 11:28 AM [facility] RBC, Urine 3.8 0 - 4 /HPF LAB URINALYSIS - AUTOMATED METHOD 05/13/2024 11:28 AM [facility] WBC, Urine 279.6(H) 0 - 4 /HPF LAB URINALYSIS - AUTOMATED METHOD 05/13/2024 11:28 AM [facility] Squamous Epithelial, Urine >100(H) 0 - 60 /LPF LAB URINALYSIS - AUTOMATED METHOD 05/13/2024 11:28 AM [facility] Crystals, Urine LT TRIPLE PHOSPHATE /LPF LAB URINALYSIS - AUTOMATED METHOD 05/13/2024 11:28 AM [facility] Hyaline Casts, Urine 22.4(H) 0 - 3 /LPF LAB URINALYSIS - AUTOMATED METHOD 05/13/2024 11:28 AM [facility] Urine Urinary bladder structure / Unknown Non-blood Collection / Unknown 05/13/2024 5:00 AM EDT 05/13/2024 10:11 AM EDT us Flaco Moser MD LAB URINE ORDERABLES Final Res ult [facility] [address] [place] [address], [place] [phone] * Chen urine culture tube (05/13/2024 5:00 AM EDT) Extra Tube Hold for add-ons. 05/13/2024 12:01 PM EDT [facility] Comment:Auto resulted. Urine Urinary bladder structure / Unknown Non-blood Collection / Unknown 05/13/2024 5:00 AM EDT 05/13/2024 10:11 AM EDT Flaco Moser MD LAB URINE ORDERABLES Final Res ult [facility] [address] [place] [address], [place] [phone] documented in this encounter Visit Diagnoses Diagnosis Encounter for other general examination documented in this encounter Care Teams Firer Helper Relationship Specialty Start Date End Date Flaco Moser MD [address] [place] [phone] PCP - General Internal Medicine 05/08/24 documented as of this encounter
--- OUTSIDE RECORDS SUMMARY | 2024-07-10 14:36 | XMS_ITS | Encounter Summary ---
Author Organization [facility] Address [address] [place] [address] Care Team Providers Care Spa Concierge Name Role Phone Flaco Moser MD Primary Care Provider [phone] Encounter Details Date Type Department Care Team (Late st Contact Info) Description 05/13/2024 Lab Requisition [facility] - Main Lab [address] [place] [address] Flaco Moser MD [address] [place] [phone] Encounter for other general examination Social History [...] Associated Diagnosis Comments COMPLETE BLOOD COUNT Routine 05/13/2024 6:49 AM EDT Encounter for other general examination COMPREHENSIVE METABOLIC PANEL Routine 05/13/2024 6:49 AM EDT Encounter for other general examination documented in this encounter Results * (ABNORMAL) Complete blood count (05/13/2024 6:49 AM EDT) [facility] Signature WBC 7.0 4.8 - 10.8 K/[facility] LAB HEMETOLOGY METHOD 05/13/2024 11:02 AM EDT [facility] RBC 4.00 3.80 - 4.80 M/[facility] LAB HEMETOLOGY METHOD 05/13/2024 11:02 AM [facility] Hemoglobin 11.9 11.5 - 16.0 g/dL LAB HEMETOLOGY METHOD 05/13/2024 11:02 AM [facility] Hematocrit 37.1 35.0 - 47.0 % LAB HEMETOLOGY METHOD 05/13/2024 11:02 AM [facility] MCV 92.8 79.0 - 98.0 FL LAB HEMETOLOGY METHOD 05/13/2024 11:02 AM [facility] MCH 29.8 27.0 - 32.0 pcg LAB HEMETOLOGY METHOD 05/13/2024 11:02 AM [facility] MCHC 32.1 32.0 - 37.0 g/dL LAB HEMETOLOGY METHOD 05/13/2024 11:02 AM [facility] RDW 12.9 11.0 - 15.0 % LAB HEMETOLOGY METHOD 05/13/2024 11:02 AM [facility] Platelets 415(H) 130 - 400 K/mcL LAB HEMETOLOGY METHOD 05/13/2024 11:02 AM [facility] MPV 9.1 7.0 - 11.0 FL LAB HEMETOLOGY METHOD 05/13/2024 11:02 AM [facility] NRBC 0.0 <1.0 % LAB HEMETOLOGY METHOD 05/13/2024 11:02 AM [facility] NRBC Absolute 0.00 <0.10 K/mcL LAB HEMETOLOGY METHOD 05/13/2024 11:02 AM [facility] Blood Venous blood specimen / Unknown Venipuncture / Unknown 05/13/2024 6:49 AM EDT 05/13/2024 10:32 AM EDT us Flaco Moser MD LAB BLOOD ORDERABLES Final Res ult [facility] [address] [place] [address], * (ABNORMAL) Comprehensive metabolic panel (05/13/2024 6:49 AM EDT) Sodium 136 133 - 145 mmol/L LAB CHEMISTRY METHOD 05/13/2024 11:21 AM [facility] Potassium 4.6 3.5 - 5.5 mmol/L LAB CHEMISTRY METHOD 05/13/2024 11:21 AM [facility] Chloride 102 96 - 110 mmol/L LAB CHEMISTRY METHOD 05/13/2024 11:21 AM [facility] CO2 27 21 - 32 mmol/L LAB CHEMISTRY METHOD 05/13/2024 11:21 AM [facility] Anion Gap 7 3 - 11 LAB CHEMISTRY METHOD 05/13/2024 11:21 AM [facility] Glucose 95 70 - 100 mg/dL LAB CHEMISTRY METHOD 05/13/2024 11:21 AM [facility] BUN 25 5 - 25 mg/dL LAB CHEMISTRY METHOD 05/13/2024 11:21 AM [facility] Creatinine 0.45(L) 0.50 - 1.10 mg/dL LAB CHEMISTRY METHOD 05/13/2024 11:21 AM [facility] eGFR 94 >=60 mL/min/1. 73m2 LAB CHEMISTRY METHOD 05/13/2024 11:21 AM [facility] Comment:Calculation based on the??Chronic Kidney Disease Epidemiology Collaboration (CKD-EPI) equation refit??without adjustment for race. BUN/Creatinine Ratio 55.6 LAB CHEMISTRY METHOD 05/13/2024 11:21 AM [facility] Calcium 8.5 8.5 - 10.5 mg/dL LAB CHEMISTRY METHOD 05/13/2024 11:21 AM EDT [facility] AST (SGOT) 23 10 - 42 unit/L LAB CHEMISTRY METHOD 05/13/2024 11:21 AM [facility] ALT (SGPT) 22 10 - 60 unit/L LAB CHEMISTRY METHOD 05/13/2024 11:21 AM [facility] Alkaline Phosphatase 79 42 - 121 unit/L LAB CHEMISTRY METHOD 05/13/2024 11:21 AM [facility] Total Protein 5.6(L) 6.0 - 8.0 g/dL LAB CHEMISTRY METHOD 05/13/2024 11:21 AM [facility] Albumin 2.4(L) 3.2 - 5.0 g/dL LAB CHEMISTRY METHOD 05/13/2024 11:21 AM [facility] Total Bilirubin 0.4 0.0 - 1.4 mg/dL LAB CHEMISTRY METHOD 05/13/2024 11:21 AM [facility] Blood Venous blood specimen / Unknown Venipuncture / Unknown 05/13/2024 6:49 AM EDT 05/13/2024 10:32 AM EDT us Flaco Moser MD LAB BLOOD ORDERABLES Final Res ult [facility] [address] [place] [address], documented in this encounter Visit Diagnoses Diagnosis Encounter for other general examination documented in this encounter Care Teams Spa Concierge Relationship Specialty Start Date End Date Flaco Moser MD [address] [place] [phone] PCP - General Internal Medicine 05/08/24 documented as of this encounter
--- OUTSIDE RECORDS SUMMARY | 2024-07-10 14:36 | XMS_ITS | Encounter Summary ---
Author Organization [facility] Address [address] [place] [address] Care Team Providers Care Trimmer Loader Name Role Phone Flaco Moser MD Primary Care Provider Encounter Details Date Type Department Care Team (Late st Contact Info) Description 05/11/2024 Lab Requisition [facility] - Main Lab [address] [place] [phone] Flaco Moser MD [address] [place] [address] Encounter for other general examination Social History [...] Associated Diagnosis Comments COMPLETE BLOOD COUNT Routine 05/11/2024 6:21 AM EST Encounter for other general examination COMPREHENSIVE METABOLIC PANEL Routine 05/11/2024 6:21 AM EST Encounter for other general examination documented in this encounter Results * Complete blood count (05/11/2024 6:21 AM EST) WBC 6.8 4.8 - 10.8 K/[facility] LAB HEMETOLOGY METHOD 05/11/2024 10:58 AM EST [facility] RBC 4.10 3.80 - 4.80 M/[facility] LAB HEMETOLOGY METHOD 05/11/2024 10:58 AM [facility] Hemoglobin 12.4 11.5 - 16.0 g/dL LAB HEMETOLOGY METHOD 05/11/2024 10:58 AM [facility] Hematocrit 37.5 35.0 - 47.0 % LAB HEMETOLOGY METHOD 05/11/2024 10:58 AM [facility] MCV 92.4 79.0 - 98.0 FL LAB HEMETOLOGY METHOD 05/11/2024 10:58 AM [facility] MCH 30.5 27.0 - 32.0 pcg LAB HEMETOLOGY METHOD 05/11/2024 10:58 AM [facility] MCHC 33.1 32.0 - 37.0 g/dL LAB HEMETOLOGY METHOD 05/11/2024 10:58 AM [facility] RDW 12.8 11.0 - 15.0 % LAB HEMETOLOGY METHOD 05/11/2024 10:58 AM [facility] Platelets 348 130 - 400 K/mcL LAB HEMETOLOGY METHOD 05/11/2024 10:58 AM [facility] MPV 9.1 7.0 - 11.0 FL LAB HEMETOLOGY METHOD 05/11/2024 10:58 AM [facility] NRBC 0.0 <1.0 % LAB HEMETOLOGY METHOD 05/11/2024 10:58 AM [facility] NRBC Absolute 0.00 <0.10 K/mcL LAB HEMETOLOGY METHOD 05/11/2024 10:58 AM [facility] Blood Venous blood specimen / Unknown Venipuncture / Unknown 05/11/2024 6:21 AM EST 05/11/2024 10:41 AM EST us Flaco Moser MD LAB BLOOD ORDERABLES Final Res ult [facility] [address] [place] [address], * (ABNORMAL) Comprehensive metabolic panel (05/11/2024 6:21 AM EST) Sodium 134 133 - 145 mmol/L LAB CHEMISTRY METHOD 05/11/2024 11:34 AM [facility] Potassium 4.1 3.5 - 5.5 mmol/L LAB CHEMISTRY METHOD 05/11/2024 11:34 AM [facility] Chloride 99 96 - 110 mmol/L LAB CHEMISTRY METHOD 05/11/2024 11:34 AM [facility] CO2 29 21 - 32 mmol/L LAB CHEMISTRY METHOD 05/11/2024 11:34 AM [facility] Anion Gap 6 3 - 11 LAB CHEMISTRY METHOD 05/11/2024 11:34 AM [facility] Glucose 88 70 - 100 mg/dL LAB CHEMISTRY METHOD 05/11/2024 11:34 AM [facility] BUN 32(H) 5 - 25 mg/dL LAB CHEMISTRY METHOD 05/11/2024 11:34 AM [facility] Creatinine 0.44(L) 0.50 - 1.10 mg/dL LAB CHEMISTRY METHOD 05/11/2024 11:34 AM [facility] eGFR 95 >=60 mL/min/1. 73m2 LAB CHEMISTRY METHOD 05/11/2024 11:34 AM [facility] Comment:Calculation based on the??Chronic Kidney Disease Epidemiology Collaboration (CKD-EPI) equation refit??without adjustment for race. BUN/Creatinine Ratio 72.7 LAB CHEMISTRY METHOD 05/11/2024 11:34 AM [facility] Calcium 9.1 8.5 - 10.5 mg/dL LAB CHEMISTRY METHOD 05/11/2024 11:34 AM [facility] AST (SGOT) 25 10 - 42 unit/L LAB CHEMISTRY METHOD 05/11/2024 11:34 AM [facility] ALT (SGPT) 24 10 - 60 unit/L LAB CHEMISTRY METHOD 05/11/2024 11:34 AM [facility] Alkaline Phosphatase 76 42 - 121 unit/L LAB CHEMISTRY METHOD 05/11/2024 11:34 AM [facility] Total Protein 5.8(L) 6.0 - 8.0 g/dL LAB CHEMISTRY METHOD 05/11/2024 11:34 AM [facility] Albumin 2.5(L) 3.2 - 5.0 g/dL LAB CHEMISTRY METHOD 05/11/2024 11:34 AM [facility] Total Bilirubin 0.5 0.0 - 1.4 mg/dL LAB CHEMISTRY METHOD 05/11/2024 11:34 AM [facility] Blood Venous blood specimen / Unknown Venipuncture / Unknown 05/11/2024 6:21 AM EST 05/11/2024 10:41 AM EST us Flaco Moser MD LAB BLOOD ORDERABLES Final Res ult [facility] [address] [place] [address], documented in this encounter Visit Diagnoses Diagnosis Encounter for other general examination documented in this encounter Care Teams Trimmer Loader Relationship Specialty Start Date End Date Flaco Moser MD [address] [place] [phone] PCP - General Internal Medicine 05/08/24 documented as of this encounter
== END 2024-07-10 13:39 | disposition home or self-care (01) ==
LOC: HO.HOS 13:20
PROVIDERS: PCP Nurse Practitioner Family; Visit Provider Physician Assistant
DX: M71.22 Synovial cyst of popliteal space [Baker], left knee (principal); M17.12 Unilateral primary osteoarthritis, left knee
CPT/HCPCS: 20610

== ENCOUNTER → 2024-07-10 13:19 | Outpatient (BNVA) | payer MEDICARE, SELFPAY | PROVIDERS: PCP Nurse Practitioner Family; Visit Provider Physician Assistant | DX: M17.12 Unilateral primary osteoarthritis, left knee (principal); M71.22 Synovial cyst of popliteal space [Baker], left knee | CPT/HCPCS: 20610; J1010; J2003 ==

== ENCOUNTER 2024-10-16 13:17 | Outpatient (AMB) | payer MEDICARE, SELFPAY ==
--- OUTSIDE RECORDS SUMMARY | 2024-10-14 23:59 | XMS_ITS | Continuity of Care Document ---
Author Organization [facility] (formerly [facility]) Adult Address [address] [place] [address]- Care Team Providers Care Pediatric Surgeon Name Role Phone Lacey OSORIO, Jacqueline Primary Care Physician Encounter [facility] [place] Date(s): 09/14/24 - 10/14/24 [facility] ([facility] Adult [address] [place] [phone]- Encounter Type: Triage Allergies, Adverse Reactions, Alerts [...] pneumococcal 20-valent conjugate vaccine 3 03/10/23 Given [id number] 12y+ bivalent booster vax 02/05/22 Recorded SARS-CoV-2 (COVID-19) mRNA BNT-162b2 vac 12/09/20 Recorded SARS-CoV-2 (COVID-19) mRNA BNT-162b2 vac 05/12/20 Recorded SARS-CoV-2 (COVID-19) mRNA BNT-162b2 vac 04/21/20 Recorded pneumococcal 13-valent vaccine 12/19/14 Given Influenza Virus Vaccine (oldterm) 4 01/29/08 Given Pneumococcal Vaccine (oldterm) 05/26/04 Given diphtheria-tetanus toxoids (DT) 05/26/04 Given 1Result Comment: [id number] 2Admin Note: VIS GIVEN 3Result Comment: PCV 20 [facility] [id number] 4Admin Note: VIM 09/03/05 [employer]UFA[employer]URED [employer] PA[employer]UR Medications atenolol 50 mg oral tablet 50 mg, 1, tablet, By Mouth, Daily, # 90 tablet, Refills 3, Tot. Refills 3, Maintenance, 09/27/24 3:15:00 PM EDT, Route to Pharmacy Electronically, [facility] # [facility], Partial fill upon patient request if the prescription is for a schedule II opioid drug., 150, cm, 09/27/24 14:51:00 EDT, Height, 54.5, kg, 05/03/24 6:39:00 EST, Dry Weight Start Date: 09/27/24 Status: Ordered Quantity: 90.0 Unit: tablet Repeat number: 4 simvastatin 10 mg oral tablet 1, tablet, By Mouth, Daily before dinner, # 90 tablet, Refills 3, Tot. Refills 3, Maintenance, 09/27/24 3:15:00 PM EDT, Route to Pharmacy Electronically, [facility] # [facility], 150, cm, 09/27/24 14:51:00 EDT, Height, 54.5, kg, 05/03/24 6:39:00 EST, Dry Weight Start Date: 09/27/24 Status: Ordered Quantity: 90.0 Unit: tablet Repeat number: 4 Problem List Condition Confirmation Course Effective Dates [...] Team Personnel Name: Robel Stauffer MD Position: [facility] Renal MD Member Role: Lifetime Consulting Physician [facility] [facility] [place] [address]- Telecom: Name: Jacqueline Rahman NP Position: [facility] PCO Associate Professional Member Role: PCP Address: [address] [facility] [address] [place], [place] - Telecom: Name: Hayley Aparicio RN Position: [facility] RN Member Role: Primary Care Nurse Name: Adelita Thompson RN Position: [facility] RN Member Role: Primary Care Nurse Care Team Related Persons Name: BELA GRACE Name: HERNÁN ELMORE Insurance Providers Guarantor name: CORTES ROSITA Health Plan Information #: 1 Payer: MEDICARE B Payer Identifier: Member Number: [id number] Group Number: Subscriber Identifier: [id number] Relationship to Subscriber: self Coverage Type: NA Coverage Verification Date: NA Telecom: NA Address: Health Plan Information #: 2 Payer: MEDEX SECONDARY ONLY Payer Identifier: Member Number: [id number] Group Number: Subscriber Identifier: [id number] Relationship to Subscriber: self Coverage Type: Medicare Other Coverage Verification Date: Telecom: Address:
--- NOTE | 2024-10-16 13:58 | MHC.OFFVIS ---
Intake Visit Reasons: Left knee durolane Gel injection Allergies acetaminophen (Percocet) Allergy (Unknown, Verified 07/10/24 13:32) rash oxycodone (Percocet) Allergy (Unknown, Verified 07/10/24 13:32) Rash HPI HPI Left knee durolane Gel injection : Details: Ms. House is an 84-year-old female who presents to the office today for Durolane injection in the left knee. PFSH Medical History Cholecystectomy planned Social History Current occupational status: retired Current occupation: rt handed Review of Systems Const All systems reviewed & are unremarkable except as noted in HPI and below Physical Exam Const General: cooperative, healthy appearing and no acute distress Resp Effort & Inspection: normal respiratory effort and able to speak in complete sentences Extrem Other: Left knee: ROM is 20-90 degrees. Sensation intact. NVI. Office Procedures AMB Joint Injection/Aspiration Joint Injection/Aspiration Primary Site: left knee Prep: site was prepped using aseptic technique, ethochloride spray was applied and injection warnings given Injected: in the joint (Durolane) Approach Used: anterolateral Procedure: The patient tolerated the procedure well, but had some pain with the injection and there was some relief with the local anesthesia Coding 45566 - Large joint Procedure code (CPT) selection complete Assessment & Plan Assessment & Plan (1) Osteoarthritis of left knee: Code(s): M17.12 - Unilateral primary osteoarthritis, left knee Category: Medical Qualifiers: Osteoarthritis type: unspecified Qualified Code(s): M17.12 - Unilateral primary osteoarthritis, left knee Plan The patient was offered a Durolane injection in the left knee. The patient was explained the risks, benefits, and alternatives to receiving this injection. After receiving consent for the injection, the patient had the procedure done while in the office today. The patient tolerated the procedure well with no complications. Follow-up will be prn, or sooner if needed Coding Level of Care Code Procedure Only Diagnoses Osteoarthritis of left knee, unspecified osteoarthritis type M17.12 Osteoarthritis type: unspecified CPT Codes Coding - 51078 Large joint: 90482 - Large joint ([id number])
--- OUTSIDE RECORDS SUMMARY | 2024-10-16 14:06 | XMS_ITS | Clinical Summary ---
Author Organization [facility] [address] [place] [address] [place] [phone] Phone Care Team Providers Care Hourly Team Members Name Role Phone Flaco Moser MD Primary Care Provider [phone] Social History Tobacco Use Types Packs/Day Years [...] - 2023-2 5 season) 2023 Depression Screening 03/07/2024 Falls Risk Assessment 05/08/2024 Medicare Annual Wellness Visit 05/08/2024 Osteoporosis Screening (Bone Density Screening) 05/08/2024 Social Influencers of Health Screening 05/08/2024 Influenza Vaccine (#1) 2024 HIB Vaccines Aged Out No longer [...] on patient's age to complete this topic Insurance MEDICARE [facility] Care Teams Hourly Team Members Relationship Specialty Start Date End Date Flaco Moser MD [address] [place] [phone] PCP - General Internal Medicine 05/08/24
== END 2024-10-16 14:00 | disposition home or self-care (01) ==
LOC: HO.HOS 13:17
PROVIDERS: PCP Nurse Practitioner Family; Visit Provider Physician Assistant
DX: M17.12 Unilateral primary osteoarthritis, left knee (principal)
CPT/HCPCS: 20610

== ENCOUNTER → 2024-10-16 13:17 | Outpatient (BNVA) | payer MEDICARE, SELFPAY | PROVIDERS: PCP Nurse Practitioner Family; Visit Provider Physician Assistant | DX: M17.12 Unilateral primary osteoarthritis, left knee (principal) | CPT/HCPCS: 20610; J7318 ==

== ENCOUNTER 2025-01-22 13:21 | Outpatient (AMB) | payer MEDICARE, SELFPAY ==
--- NOTE | 2025-01-22 13:56 | A.OFFVIS_ITS ---
Intake Visit Reasons: OV-Left knee injection Intake Note: Margi is a 84 year old female who presents today for a repeat cortisone injection, last gel injection was on 10/16/24. Patient reports her gel injection didn't give her relief and made her pain worse. She states that she finds more relief with the cortisone. Accompanied by: Son Allergies acetaminophen (Percocet) Allergy (Unknown, Verified 01/22/25 13:58) rash oxycodone (Percocet) Allergy (Unknown, Verified 01/22/25 13:58) Rash HPI HPI OV-Left knee injection: Details: Ms. House is an 84-year-old female who presents to the office today accompanied by her son for follow up of chronic left knee pain due to osteoarthritis. She is looking for cortisone injection today. [facility] Medical History Cholecystectomy planned Social History Current occupational status: retired Current occupation: rt handed Review of Systems Const All systems reviewed & are unremarkable except as noted in HPI and below Physical Exam Const General: cooperative, healthy appearing and no acute distress Resp Effort & Inspection: normal respiratory effort and able to speak in complete sentences Extrem Other: Left knee: Mild effusion. ROM is 0-110 degrees. Sensation intact. NVI. Office Procedures AMB Joint Injection/Aspiration Joint Injection/Aspiration Primary Site: Left Knee Prep: site was prepped using aseptic technique, ethochloride spray was applied and injection warnings given Injected: 40 mg of, Decadron, with 3 mL of, 1% plain Lidocaine, 0.25% Bupivacaine and in the joint Approach Used: anterolateral Procedure: The patient tolerated the procedure well, but had some pain with the injection and there was some relief with the local anesthesia Coding 77306 - Large joint Procedure code (CPT) selection complete Assessment & Plan Assessment & Plan (1) Osteoarthritis of left knee: Code(s): M17.12 - Unilateral primary osteoarthritis, left knee Category: Medical Qualifiers: Osteoarthritis type: unspecified Qualified Code(s): M17.12 - Unilateral primary osteoarthritis, left knee Plan The patient was offered a cortisone injection in the left knee. The patient was explained the risks, benefits, and alternatives to receiving this injection. After receiving consent for the injection, the patient had the procedure done while in the office today. The patient tolerated the procedure well with no complications. Follow-up will be PRN, or sooner if needed Coding Level of Care Code Est Pt Level 3 (54098) Diagnoses Osteoarthritis of left knee, unspecified osteoarthritis type M17.12 Osteoarthritis type: unspecified CPT Codes Coding - 44236 Large joint: 95936 - Large joint ([id number])
--- OUTSIDE RECORDS SUMMARY | 2025-01-23 06:10 | XMS_ITS | Encounter Summary ---
Author Organization [facility] Address [address] [place] [address] Care Team Providers Care Therapeutic Recreation Director Name Role Phone Flaco Moser MD Primary Care Provider [phone] Encounter Details Date Type Department Care Team (Late st Contact Info) Description 05/17/2024 Lab Requisition [facility] - Main Lab [address] [place] [phone] Flaco Moser MD [address] [place] [phone] Encounter for other general examination Social History [...] Complete blood count (05/17/2024 5:22 AM EDT) [facility] Signature WBC 5.0 4.8 - 10.8 K/[facility] LAB HEMETOLOGY METHOD 05/17/2024 9:31 AM EDT [facility] RBC 3.70(L) 3.80 - 4.80 M/[facility] LAB HEMETOLOGY METHOD 05/17/2024 9:31 AM [facility] Hemoglobin 11.3(L) 11.5 - 16.0 g/dL LAB HEMETOLOGY METHOD 05/17/2024 9:31 AM [facility] Hematocrit 34.5(L) 35.0 - 47.0 % LAB HEMETOLOGY METHOD 05/17/2024 9:31 AM [facility] MCV 92.7 79.0 - 98.0 FL LAB HEMETOLOGY METHOD 05/17/2024 9:31 AM [facility] MCH 30.4 27.0 - 32.0 pcg LAB HEMETOLOGY METHOD 05/17/2024 9:31 AM [facility] MCHC 32.8 32.0 - 37.0 g/dL LAB HEMETOLOGY METHOD 05/17/2024 9:31 AM [facility] RDW 12.7 11.0 - 15.0 % LAB HEMETOLOGY METHOD 05/17/2024 9:31 AM [facility] Platelets 458(H) 130 - 400 K/mcL LAB HEMETOLOGY METHOD 05/17/2024 9:31 AM [facility] MPV 8.7 7.0 - 11.0 FL LAB HEMETOLOGY METHOD 05/17/2024 9:31 AM [facility] NRBC 0.0 <1.0 % LAB HEMETOLOGY METHOD 05/17/2024 9:31 AM [facility] NRBC Absolute 0.00 <0.10 K/mcL LAB HEMETOLOGY METHOD 05/17/2024 9:31 AM [facility] Blood Venous blood specimen / Unknown Venipuncture / Unknown 05/17/2024 5:22 AM EDT 05/17/2024 8:47 AM EDT Flaco Moser MD LAB BLOOD ORDERABLES Final Res ult [facility] [address] [place] [address], * (ABNORMAL) Comprehensive metabolic panel (05/17/2024 5:22 AM EDT) Sodium 136 133 - 145 mmol/L LAB CHEMISTRY METHOD 05/17/2024 10:01 AM [facility] Potassium 4.1 3.5 - 5.5 mmol/L LAB CHEMISTRY METHOD 05/17/2024 10:01 AM [facility] Chloride 102 96 - 110 mmol/L LAB CHEMISTRY METHOD 05/17/2024 10:01 AM [facility] CO2 28 21 - 32 mmol/L LAB CHEMISTRY METHOD 05/17/2024 10:01 AM [facility] Anion Gap 6 3 - 11 LAB CHEMISTRY METHOD 05/17/2024 10:01 AM [facility] Glucose 88 70 - 100 mg/dL LAB CHEMISTRY METHOD 05/17/2024 10:01 AM [facility] BUN 15 5 - 25 mg/dL LAB CHEMISTRY METHOD 05/17/2024 10:01 AM [facility] Creatinine 0.47(L) 0.50 - 1.10 mg/dL LAB CHEMISTRY METHOD 05/17/2024 10:01 AM [facility] eGFR 93 >=60 mL/min/1. 73m2 LAB CHEMISTRY METHOD 05/17/2024 10:01 AM [facility] Comment:Calculation based on the Chronic Kidney Disease Epidemiology Collaboration (CKD-EPI) equation refit without adjustment for race. BUN/Creatinine Ratio 31.9 LAB CHEMISTRY METHOD 05/17/2024 10:01 AM [facility] Calcium 8.8 8.5 - 10.5 mg/dL LAB CHEMISTRY METHOD 05/17/2024 10:01 AM [facility] AST (SGOT) 14 10 - 42 unit/L LAB CHEMISTRY METHOD 05/17/2024 10:01 AM [facility] ALT (SGPT) 19 10 - 60 unit/L LAB CHEMISTRY METHOD 05/17/2024 10:01 AM [facility] Alkaline Phosphatase 97 42 - 121 unit/L LAB CHEMISTRY METHOD 05/17/2024 10:01 AM [facility] Total Protein 5.7(L) 6.0 - 8.0 g/dL LAB CHEMISTRY METHOD 05/17/2024 10:01 AM [facility] Albumin 2.6(L) 3.2 - 5.0 g/dL LAB CHEMISTRY METHOD 05/17/2024 10:01 AM [facility] Total Bilirubin 0.4 0.0 - 1.4 mg/dL LAB CHEMISTRY METHOD 05/17/2024 10:01 AM [facility] Blood Venous blood specimen / Unknown Venipuncture / Unknown 05/17/2024 5:22 AM EDT 05/17/2024 8:47 AM EDT Flaco Moser MD LAB BLOOD ORDERABLES Final Res ult [facility] [address] [place] [address], documented in this encounter Visit Diagnoses Diagnosis Encounter for other general examination documented in this encounter Care Teams Therapeutic Recreation Director Relationship Specialty Start Date End Date Flaco Moser MD [address] [place] [phone] PCP - General Internal Medicine 05/08/24 documented as of this encounter
--- OUTSIDE RECORDS SUMMARY | 2025-01-23 06:10 | XMS_ITS | Encounter Summary ---
Author Organization [facility] Address [address] [place] [address] Care Team Providers Care Life Insurance Agent Name Role Phone Flaco Moser MD Primary Care Provider [phone] Encounter Details Date Type Department Care Team (Late st Contact Info) Description 05/15/2024 Lab Requisition [facility] - Main Lab [address] [facility] [place] [address] Flaco Moser MD [address] [place] [phone] Encounter for other general examination Social History [...] Escherichia coli(A) MARILY 05/18/2024 11:12 AM EDT [facility] Comment: The organism value for this result has been updated. These results have been appended to the previously preliminary verified report. Urine Urine specimen obtained by clean catch procedure / Unknown Non-blood Collection / Unknown 05/14/2024 6:00 PM EDT 05/15/2024 12:57 PM EDT Narrative [facility] - 05/18/2024 11:12 AM EDT [...] MARILY 2 ug/ml: Susceptible Escherichia coli Ciprofloxacin MRAILY <=0.06 ug/ml: Susceptible Escherichia coli Levofloxacin MARILY <=0.12 ug/ml: Susceptible Escherichia coli Nitrofurantoin MARILY <=16 ug/ml: Susceptible Escherichia coli Trimethoprim/Sulfamethoxazole MARILY <=20 ug/ml: Susceptible us Flaco Moser MD LAB MICROBIOLOGY - GENERAL ORD ERABLES Final Result [facility] [address] [place] [address], * (ABNORMAL) Urinalysis with reflex microscopic and culture (05/14/2024 6:00 PM EDT) Specific [place] Urine 1.037(H) 1.003 - 1.030 LAB URINALYSIS - AUTOMATED METHOD 05/15/2024 12:57 PM [facility] pH, Urine 5.5 5.0 - 8.0 pH LAB URINALYSIS - AUTOMATED METHOD 05/15/2024 12:57 PM [facility] Leukocytes, Urine Moderate(A) Negative LAB URINALYSIS - AUTOMATED METHOD 05/15/2024 12:57 PM [facility] Nitrite, Urine Positive(A) Negative LAB URINALYSIS - AUTOMATED METHOD 05/15/2024 12:57 PM [facility] Protein, Urine 30(A) <=Trace mg/dL LAB URINALYSIS - AUTOMATED METHOD 05/15/2024 12:57 PM [facility] Glucose, Urine Negative Negative mg/dL LAB URINALYSIS - AUTOMATED METHOD 05/15/2024 12:57 PM [facility] Ketones, Urine Trace(A) Negative mg/dL LAB URINALYSIS - AUTOMATED METHOD 05/15/2024 12:57 PM [facility] Urobilinogen , Urine 1.0 0.2 - 1.0 mg/dL LAB URINALYSIS - AUTOMATED METHOD 05/15/2024 12:57 PM [facility] Bilirubin, Urine Negative Negative LAB URINALYSIS - AUTOMATED METHOD 05/15/2024 12:57 PM [facility] Blood, Urine Negative Negative LAB URINALYSIS - AUTOMATED METHOD 05/15/2024 12:57 PM [facility] RBC, Urine 3.2 0 - 4 /HPF LAB URINALYSIS - AUTOMATED METHOD 05/15/2024 12:57 PM [facility] WBC, Urine 161.2(H) 0 - 4 /HPF LAB URINALYSIS - AUTOMATED METHOD 05/15/2024 12:57 PM [facility] Squamous Epithelial, Urine >100(H) 0 - 60 /LPF LAB URINALYSIS - AUTOMATED METHOD 05/15/2024 12:57 PM EDT [facility] Bacteria, Urine Many(A) Negative /HPF LAB URINALYSIS - AUTOMATED METHOD 05/15/2024 12:57 PM EDT [facility] Hyaline Casts, Urine 9.5(H) 0 - 3 /LPF LAB URINALYSIS - AUTOMATED METHOD 05/15/2024 12:57 PM EDT [facility] Urine Urine specimen obtained by clean catch procedure / Unknown Non-blood Collection / Unknown 05/14/2024 6:00 PM EDT 05/15/2024 10:30 AM EDT us Flaco Moser MD LAB URINE ORDERABLES Final Res ult Performing Organization Address City/[facility]/ZIP Co de Phone Number [facility] [address] [place] [address], [place] [phone] * Chen urine culture tube (05/14/2024 6:00 PM EDT) Extra Tube Hold for add-ons. 05/15/2024 12:02 PM EDT [facility] Comment:Auto resulted. Urine Urine specimen obtained by clean catch procedure / Unknown Non-blood Collection / Unknown 05/14/2024 6:00 PM EDT 05/15/2024 10:30 AM EDT us Flaco Moser MD LAB URINE ORDERABLES Final Res ult Performing Organization Address City/[facility]/ZIP Co de Phone Number [facility] [address] [place] [address], [place] [phone] documented in this encounter Visit Diagnoses Diagnosis Encounter for other general examination documented in this encounter Care Teams Life Insurance Agent Relationship Specialty Start Date End Date Flaco Moser MD [address] [place] [phone] PCP - General Internal Medicine 05/08/24 documented as of this encounter
--- OUTSIDE RECORDS SUMMARY | 2025-01-23 06:11 | XMS_ITS | Encounter Summary ---
Author Organization [facility] Address [address] [place] [address] Care Team Providers Care Global Security Architect Name Role Phone Flaco Moser MD Primary Care Provider [phone] Encounter Details Date Type Department Care Team (Late st Contact Info) Description 05/13/2024 Lab Requisition [facility] - Main Lab [address] [facility] [place] [address] Flaco Moser MD [address] [place] [phone] Encounter for other general examination Social History [...] Escherichia coli(A) MARILY 05/17/2024 7:49 AM EDT [facility] Comment: This is an edited result. Previous organism was Gram negative bacilli on 05/14/2024 at 1146 EDT. Culture, Urine 10,000-49,000 CFU/mL Pseudomonas aeruginosa(A) MARILY 05/17/2024 7:49 AM EDT [facility] Comment: The organism value for this result has been updated. These results have been appended to the previously preliminary verified report. This is an edited result. Previous organism was Gram negative bacilli on 05/15/2024 at 1219 EDT. Culture, Urine >100,000 CFU/mL Aerococcus urinae(A) MARILY 05/17/2024 7:49 AM EDT [facility] Comment: Susceptibility testing not routinely performed. If further therapeutic information is required, please consult [...] MARILY 0.5 ug/ml: Susceptible Pseudomonas aeruginosa Levofloxacin MARILY 2 ug/ml: Intermediate Pseudomonas aeruginosa Amikacin DISK DIFFUSION Pseudomonas aeruginosa Cefepime DISK DIFFUSION Pseudomonas aeruginosa Ceftazidime DISK DIFFUSION Pseudomonas aeruginosa Ciprofloxacin DISK DIFFUSION Pseudomonas aeruginosa Levofloxacin DISK DIFFUSION Pseudomonas aeruginosa Meropenem DISK DIFFUSION Pseudomonas aeruginosa Piperacillin/Tazobactam DISK DI FFUSION Susceptible Pseudomonas aeruginosa Tobramycin DISK DIFFUSION us Flaco Moser MD LAB MICROBIOLOGY - GENERAL ORD ERABLES Final Result [facility] [address] [place] [address], [place] [phone] * (ABNORMAL) Urinalysis with reflex microscopic and culture (05/13/2024 5:00 AM EDT) Specific [place] Urine 1.031(H) 1.003 - 1.030 LAB URINALYSIS - AUTOMATED METHOD 05/13/2024 11:28 AM [facility] pH, Urine 8.0 5.0 - 8.0 pH LAB URINALYSIS - AUTOMATED METHOD 05/13/2024 11:28 AM [facility] Leukocytes, Urine Small(A) Negative LAB URINALYSIS - AUTOMATED METHOD 05/13/2024 11:28 AM [facility] Nitrite, Urine Positive(A) Negative LAB URINALYSIS - AUTOMATED METHOD 05/13/2024 11:28 AM [facility] Protein, Urine 30(A) <=Trace mg/dL LAB URINALYSIS - AUTOMATED METHOD 05/13/2024 11:28 AM [facility] Glucose, Urine Negative Negative mg/dL LAB URINALYSIS - AUTOMATED METHOD 05/13/2024 11:28 AM [facility] Ketones, Urine Negative Negative mg/dL LAB URINALYSIS - AUTOMATED METHOD 05/13/2024 11:28 AM [facility] Urobilinogen , Urine 1.0 0.2 - 1.0 mg/dL LAB URINALYSIS - AUTOMATED METHOD 05/13/2024 11:28 AM [facility] Bilirubin, Urine Negative Negative LAB URINALYSIS - AUTOMATED METHOD 05/13/2024 11:28 AM [facility] Blood, Urine Negative Negative LAB URINALYSIS - AUTOMATED METHOD 05/13/2024 11:28 AM [facility] RBC, Urine 3.8 0 - 4 /HPF LAB URINALYSIS - AUTOMATED METHOD 05/13/2024 11:28 AM [facility] WBC, Urine 279.6(H) 0 - 4 /HPF LAB URINALYSIS - AUTOMATED METHOD 05/13/2024 11:28 AM [facility] Squamous Epithelial, Urine >100(H) 0 - 60 /LPF LAB URINALYSIS - AUTOMATED METHOD 05/13/2024 11:28 AM [facility] Crystals, Urine LT TRIPLE PHOSPHATE /LPF LAB URINALYSIS - AUTOMATED METHOD 05/13/2024 11:28 AM [facility] Hyaline Casts, Urine 22.4(H) 0 - 3 /LPF LAB URINALYSIS - AUTOMATED METHOD 05/13/2024 11:28 AM [facility] Urine Urinary bladder structure / Unknown Non-blood Collection / Unknown 05/13/2024 5:00 AM EDT 05/13/2024 10:11 AM EDT us Flaco Moser MD LAB URINE ORDERABLES Final Res ult [facility] [address] [place] [address], [place] [phone] * Chen urine culture tube (05/13/2024 5:00 AM EDT) Extra Tube Hold for add-ons. 05/13/2024 12:01 PM EDT [facility] Comment:Auto resulted. Urine Urinary bladder structure / Unknown Non-blood Collection / Unknown 05/13/2024 5:00 AM EDT 05/13/2024 10:11 AM EDT us Flaco Moser MD LAB URINE ORDERABLES Final Res ult [facility] [address] [place] [address], [place] [phone] documented in this encounter Visit Diagnoses Diagnosis Encounter for other general examination documented in this encounter Care Teams Global Security Architect Relationship Specialty Start Date End Date Flaco Moser MD [address] [place] [phone] PCP - General Internal Medicine 05/08/24 documented as of this encounter
--- OUTSIDE RECORDS SUMMARY | 2025-01-23 06:11 | XMS_ITS | Clinical Summary ---
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 Atrophic vaginitis 11/14/2024 Hypo-osmolality and hyponatremia 10/23/2024 Murmur 09/27/2024 Bilateral lower limb edema 09/27/2024 Anemia 03/07/2024 Essential hypertension 03/07/2024 Osteoarthritis 03/07/2024 Problem related to health literacy 03/07/2024 Hyperlipidemia 03/07/2024 Osteopenia 01/30/2013 Overview (11/14/2024): Ramonita Encounters Date Type Department Care Team Description 11/14/2024 1:15 PM EDT Office Visit [facility] [address] [place] [phone] Jeanmarie Welsh MD Hypo-osmolality and hyponatremia (Primary Dx) 10/23/2024 1:30 PM EDT Office Visit [facility] [address] [phone] Jeanmarie Welsh MD Hypo-osmolality and hyponatremia (Primary Dx) from Last 3 Months Immunizations Immunization Administration Dates Next Due DT 05/26/2004 Influenza (IM) Preservative Free 12/17/2010 Influenza Whole 01/29/2008 Pfizer SARS-COV-2 12/09/2020,05/12/2020,04/21/19 21 Pneumococcal Conjugate 13-Valent 12/19/2014 Pneumococcal Polysaccharide 05/26/2004 Family History Relation Status Comments Father Mother Social History Tobacco Use Types Packs/Day Years Used Date Smoking Tobacco: Never Smokeless Tobacco: Never Tobacco Cessation:Counseling Given: Not Answered Comments Unknown Sex and Gender Information Value Date Recorded Sex Assigned at Not on file Legal Sex Female 2:08 PM EDT Gender Identity Not on file Sexual Orientation Not on file Last Filed Vital Signs Vital Sign Reading Time Taken Comments Blood Pressure 109/62 11/14/2024 1:33 PM EDT Pulse 56 11/14/2024 1:33 PM EDT Temperature - - Respiratory Rate - - Oxygen Saturation 91% 11/14/2024 1:33 PM EDT Inhaled Oxygen Concentration - - Weight 57.8 kg (127 lb 6.4 oz) 11/14/2024 1:33 P M EDT Height - - Body Mass Index - - Plan of Treatment Upcoming Encounters Date Type Department Care Team (Late st Contact Info) Description 02/13/2025 2:00 PM EST [facility] [address] [phone] Serina Banerjee ARNP [address] [phone] Health Maintenance Due Date Last Done Comments Influenza Vaccine (#1) 2024 , 01/29/2008 Pneumococcal Vaccine: 50+ Years Completed 12/19/2014, 05/26/2004 Hepatitis B Vaccine Aged Out No longe r eligible based on patient's age to complete this topic Procedures Procedure Name Priority Date/Time Associated Diagnosis Comments THYROID PEROXIDASE (TPO) ANTIBODIES (HC) Routine 11/08/2024 10:41 AM EDT T4 FREE, DIRECT (HC) Routine 11/08/2024 10:41 AM EDT CORTISOL Routine 11/08/2024 10:41 AM EDT Hypo-osmolality and hyponatremia TSH W/REFLEX TO FT4 Routine 11/08/2024 1 0:41 AM EDT Hypo-osmolality and hyponatremia OSMOLALITY, URINE Routine 11/08/2024 10: 41 AM EDT Hypo-osmolality and hyponatremia SODIUM, URINE, RANDOM Routine 11/08/2024 10:41 AM EDT Hypo-osmolality and hyponatremia URIC ACID Routine 11/08/2024 10:41 AM EDT Hypo-osmolality and hyponatremia RENAL FUNCTION PANEL Routine 11/08/2024 10:41 AM EDT Hypo-osmolality and hyponatremia from Last 3 Months Results * (ABNORMAL) Thyroid Peroxidase (TPO) Antibodies (11/08/2024 10:41 AM EDT) [facility] Thyroid Peroxidase Antibodies 100(H) 0 - 34 IU/mL [facility] Interpretive Comment Comment [facility] Comment: An elevation of TSH with a normal FT4 in the presence of antithyroid peroxidase antibody is suggestive of Subclinical Hypothyroidism. 11/08/2024 10:4 1 AM EDT 11/08/2024 us Jeanmarie Welsh MD LAB [id number] SOLICITED RESULTS Final Result [facility] [place] [address] [place] [phone] * T4 Free, Direct (11/08/2024 10:41 AM EDT) Free T4 1.07 0.82 - 1.77 ng/dL [facility] 11/08/2024 10:4 1 AM EDT 11/08/2024 Jeanmarie Welsh MD LAB [id number] SOLICITED RESULTS Final Result Performing Organization Address City/[facility]/ZIP Co de Phone Number [facility] [address] [place] [phone] * Urine, sodium,random (11/08/2024 10:41 AM EDT) Pathologist [facility] Sodium, 24H Ur 39 Not Estab. mmol/L [facility] Comment:Verified by repeat analysis Urine Urine specimen obtained by clean catch procedure / Unknown 11/08/2024 10:41 AM EDT 11/08/2024 Jaenmarie Welsh MD LAB URINE ORDERABLES Final Re sult Performing Organization Address [facility]/ZIP Co de Phone Number [facility] [address] [place] [phone] * Urine Osmolality (11/08/2024 10:41 AM EDT) Pathologist [facility] Osmolality, Ur 781 mOsmol/kg [facility] Comment: 24 hr : 300 - 900 Random: 50 - 1400 After 12hr fluid restriction: >850 Urine Urine specimen obtained by clean catch procedure / Unknown 11/08/2024 10:41 AM EDT 11/08/2024 Jeanmarie Welsh MD LAB URINE ORDERABLES Final Re sult Performing Organization Address City/[facility]/ZIP Co de Phone Number [facility] [address] [place] [phone] * Uric acid (11/08/2024 10:41 AM EDT) Uric Acid 4.7 3.1 - 7.9 mg/dL [facility] [place] Comment:Therapeutic target f or gout patients: <6.0 Blood Venous blood / Unknown 11/08/2024 10:41 AM EDT 11/08/2024 Jeanmarie Welsh MD LAB BLOOD ORDERABLES Final Re sult Performing Organization Address [facility] Co de Phone Number [facility] [address] [place] [phone] * (ABNORMAL) TSH w/reflex to FT4 (11/08/2024 10:41 AM EDT) Pathologist [facility] TSH 5.880(H) 0.450 - 4.500 uIU/mL [facility] Blood Venous blood / Unknown 11/08/2024 10:41 AM EDT 11/08/2024 Jeanmarie Welsh MD LAB BLOOD ORDERABLES Final Re sult Performing Organization Address [facility] de Phone Number [facility] [address] [place] [phone] * Cortisol (11/08/2024 10:41 AM EDT) Pathologist [facility] Cortisol 8.3 6.2 - 19.4 ug/dL [facility] Comment: Please Note: The reference interval and flagging for this test is for an AM collection. If this is a PM collection please use: Cortisol PM: 2.3-11.9 Blood Venous blood / Unknown 11/08/2024 10:41 AM EDT 11/08/2024 Jeanmarie Welsh MD LAB BLOOD ORDERABLES Final Re sult Performing Organization Address [facility] Co de Phone Number [facility] [address] [place] [phone] * (ABNORMAL) Renal function panel (11/08/2024 10:41 AM EDT) Glucose 82 70 - 99 mg/dL [facility] BUN 17 8 - 27 mg/dL [facility] Creatinine 0.67 0.57 - 1.00 mg/dL [facility] eGFR CKD-EPI CR 2020 85 >59 mL/min/1.7 3 [facility] BUN/Creatinine Ratio 25 12 - 28 [facility] Sodium 132(L) 134 - 144 mmol/L [facility] Potassium 4.9 3.5 - 5.2 mmol/L [facility] Chloride 93(L) 96 - 106 mmol/L [facility] Bicarbonate (CO2) 21 20 - 29 mmol/L [facility] Calcium 9.7 8.7 - 10.3 mg/dL [facility] Albumin 4.2 3.7 - 4.7 g/dL [facility] Phosphorus 4.2 3.0 - 4.3 mg/dL [facility] Blood Venous blood / Unknown 11/08/2024 10:41 AM EDT 11/08/2024 us eJanmarie Welsh MD LAB BLOOD ORDERABLES Final Re sult [facility] [place] [address] [place] [phone] from Last 3 Months Insurance [facility] Medicare Medicare [facility] Care Teams Hamper Maker Machine Relationship Specialty Start Date End Date Jacqueline Jett [address] [place] [address] [facility] - General 10/01/24
--- OUTSIDE RECORDS SUMMARY | 2025-01-23 06:11 | XMS_ITS | Clinical Summary ---
Author Organization LL [address] [place] [address] Address [address] [place] [address] Phone Care Team Providers Care Acid Tank Cleaner Name Role Phone Flaco Moser MD Primary Care Provider [phone] Social History Tobacco Use Types Packs/Day Years [...] nts (1 - 1-dose 75+ series) 2013 Depression Screening 03/07/2024 Falls Risk Assessment 05/08/2024 Medicare Annual Wellness Visit 05/08/2024 Osteoporosis Screening (Bone Density Screening) 05/08/2024 Social Influencers of Health Screening 05/08/2024 COVID-19 Vaccine (1 - 2024-2 6 season) 2024 Influenza Vaccine (#1) 2024 HIB Vaccines Aged [...] age to complete this topic Insurance MEDICARE [facility] Care Teams Acid Tank Cleaner Relationship Specialty Start Date End Date Flaco Moser MD [address] [place] [phone] PCP - General Internal Medicine 05/08/24
--- OUTSIDE RECORDS SUMMARY | 2025-01-23 06:11 | XMS_ITS | Encounter Summary ---
Author Organization [facility] Address [address] [place] [address] Care Team Providers Care Geospatial Engineer Name Role Phone Flaco Moser MD Primary Care Provider [phone] Encounter Details Date Type Department Care Team (Late st Contact Info) Description 05/13/2024 Lab Requisition [facility] - Main Lab [address] [place] [address] Flaco Moser MD [address] [place] [phone] Encounter for other general examination Social History [...] Complete blood count (05/13/2024 6:49 AM EDT) [facility] Signature WBC 7.0 4.8 - 10.8 K/[facility] LAB HEMETOLOGY METHOD 05/13/2024 11:02 AM EDT [facility] LAB RBC 4.00 3.80 - 4.80 M/[facility] LAB HEMETOLOGY METHOD 05/13/2024 11:02 AM [facility] LAB Hemoglobin 11.9 11.5 - 16.0 g/dL LAB HEMETOLOGY METHOD 05/13/2024 11:02 AM [facility] LAB Hematocrit 37.1 35.0 - 47.0 % LAB HEMETOLOGY METHOD 05/13/2024 11:02 AM [facility] LAB MCV 92.8 79.0 - 98.0 FL LAB HEMETOLOGY METHOD 05/13/2024 11:02 AM [facility] LAB MCH 29.8 27.0 - 32.0 pcg LAB HEMETOLOGY METHOD 05/13/2024 11:02 AM [facility] LAB MCHC 32.1 32.0 - 37.0 g/dL LAB HEMETOLOGY METHOD 05/13/2024 11:02 AM [facility] LAB RDW 12.9 11.0 - 15.0 % LAB HEMETOLOGY METHOD 05/13/2024 11:02 AM [facility] LAB Platelets 415(H) 130 - 400 K/mcL LAB HEMETOLOGY METHOD 05/13/2024 11:02 AM [facility] LAB MPV 9.1 7.0 - 11.0 FL LAB HEMETOLOGY METHOD 05/13/2024 11:02 AM [facility] LAB NRBC 0.0 <1.0 % LAB HEMETOLOGY METHOD 05/13/2024 11:02 AM [facility] LAB NRBC Absolute 0.00 <0.10 K/mcL LAB HEMETOLOGY METHOD 05/13/2024 11:02 AM [facility] LAB Blood Venous blood specimen / Unknown Venipuncture / Unknown 05/13/2024 6:49 AM EDT 05/13/2024 10:32 AM EDT us Flaco Moser MD LAB BLOOD ORDERABLES Final Res ult [facility] [address] [place] [address], * (ABNORMAL) Comprehensive metabolic panel (05/13/2024 6:49 AM EDT) Sodium 136 133 - 145 mmol/L LAB CHEMISTRY METHOD 05/13/2024 11:21 AM [facility] LAB Potassium 4.6 3.5 - 5.5 mmol/L LAB CHEMISTRY METHOD 05/13/2024 11:21 AM [facility] LAB Chloride 102 96 - 110 mmol/L LAB CHEMISTRY METHOD 05/13/2024 11:21 AM [facility] LAB CO2 27 21 - 32 mmol/L LAB CHEMISTRY METHOD 05/13/2024 11:21 AM [facility] LAB Anion Gap 7 3 - 11 LAB CHEMISTRY METHOD 05/13/2024 11:21 AM [facility] Glucose 95 70 - 100 mg/dL LAB CHEMISTRY METHOD 05/13/2024 11:21 AM [facility] BUN 25 5 - 25 mg/dL LAB CHEMISTRY METHOD 05/13/2024 11:21 AM [facility] LAB Creatinine 0.45(L) 0.50 - 1.10 mg/dL LAB CHEMISTRY METHOD 05/13/2024 11:21 AM [facility] LAB eGFR 94 >=60 mL/min/1. 73m2 LAB CHEMISTRY METHOD 05/13/2024 11:21 AM [facility] LAB Comment:Calculation based on the Chronic Kidney Disease Epidemiology Collaboration (CKD-EPI) equation refit without adjustment for race. BUN/Creatinine Ratio 55.6 LAB CHEMISTRY METHOD 05/13/2024 11:21 AM [facility] LAB Calcium 8.5 8.5 - 10.5 mg/dL LAB CHEMISTRY METHOD 05/13/2024 11:21 AM [facility] LAB AST (SGOT) 23 10 - 42 unit/L LAB CHEMISTRY METHOD 05/13/2024 11:21 AM T [facility] LAB ALT (SGPT) 22 10 - 60 unit/L LAB CHEMISTRY METHOD 05/13/2024 11:21 AM EDT [facility] LAB Alkaline Phosphatase 79 42 - 121 unit/L LAB CHEMISTRY METHOD 05/13/2024 11:21 AM EDT [facility] LAB Total Protein 5.6(L) 6.0 - 8.0 g/dL LAB CHEMISTRY METHOD 05/13/2024 11:21 AM T [facility] LAB Albumin 2.4(L) 3.2 - 5.0 g/dL LAB CHEMISTRY METHOD 05/13/2024 11:21 AM [facility] LAB Total Bilirubin 0.4 0.0 - 1.4 mg/dL LAB CHEMISTRY METHOD 05/13/2024 11:21 AM T [facility] LAB Blood Venous blood specimen / Unknown Venipuncture / Unknown 05/13/2024 6:49 AM EDT 05/13/2024 10:32 AM EDT us Flaco Moser MD LAB BLOOD ORDERABLES Final Res ult [facility] [address] [place] [address], documented in this encounter Visit Diagnoses Diagnosis Encounter for other general examination documented in this encounter Care Teams Geospatial Engineer Relationship Specialty Start Date End Date Flaco Moser MD [address] [place] [phone] PCP - General Internal Medicine 05/08/24 documented as of this encounter
--- OUTSIDE RECORDS SUMMARY | 2025-01-23 06:11 | XMS_ITS | Encounter Summary ---
Author Organization [facility] Address [address] [place] [address] Care Team Providers Care Internet Project Manager Name Role Phone Flaco Moser MD Primary Care Provider [phone] Encounter Details Date Type Department Care Team (Late st Contact Info) Description 05/11/2024 Lab Requisition [facility] - Main Lab [address] [place] [phone] Flaco Moser MD [address] [place] [phone] Encounter for other general examination Social History [...] AM EST) WBC 6.8 4.8 - 10.8 K/[facility] LAB HEMETOLOGY METHOD 05/11/2024 10:58 AM EST [facility] RBC 4.10 3.80 - 4.80 M/[facility] LAB HEMETOLOGY METHOD 05/11/2024 10:58 AM [facility] LAB Hemoglobin 12.4 11.5 - 16.0 g/dL LAB HEMETOLOGY METHOD 05/11/2024 10:58 AM [facility] LAB Hematocrit 37.5 35.0 - 47.0 % LAB HEMETOLOGY METHOD 05/11/2024 10:58 AM [facility] LAB MCV 92.4 79.0 - 98.0 FL LAB HEMETOLOGY METHOD 05/11/2024 10:58 AM [facility] LAB MCH 30.5 27.0 - 32.0 pcg LAB HEMETOLOGY METHOD 05/11/2024 10:58 AM [facility] LAB MCHC 33.1 32.0 - 37.0 g/dL LAB HEMETOLOGY METHOD 05/11/2024 10:58 AM [facility] LAB RDW 12.8 11.0 - 15.0 % LAB HEMETOLOGY METHOD 05/11/2024 10:58 AM [facility] LAB Platelets 348 130 - 400 K/mcL LAB HEMETOLOGY METHOD 05/11/2024 10:58 AM [facility] LAB MPV 9.1 7.0 - 11.0 FL LAB HEMETOLOGY METHOD 05/11/2024 10:58 AM [facility] LAB NRBC 0.0 <1.0 % LAB HEMETOLOGY METHOD 05/11/2024 10:58 AM [facility] LAB NRBC Absolute 0.00 <0.10 K/mcL LAB HEMETOLOGY METHOD 05/11/2024 10:58 AM [facility] LAB Blood Venous blood specimen / Unknown Venipuncture / Unknown 05/11/2024 6:21 AM EST 05/11/2024 10:41 AM EST us Flaco Moser MD LAB BLOOD ORDERABLES Final Res ult [facility] [address] [place] [address], [place] [phone] * (ABNORMAL) Comprehensive metabolic panel (05/11/2024 6:21 AM EST) Sodium 134 133 - 145 mmol/L LAB CHEMISTRY METHOD 05/11/2024 11:34 AM [facility] Potassium 4.1 3.5 - 5.5 mmol/L LAB CHEMISTRY METHOD 05/11/2024 11:34 AM [facility] Chloride 99 96 - 110 mmol/L LAB CHEMISTRY METHOD 05/11/2024 11:34 AM [facility] CO2 29 21 - 32 mmol/L LAB CHEMISTRY METHOD 05/11/2024 11:34 AM [facility] Anion Gap 6 3 - 11 LAB CHEMISTRY METHOD 05/11/2024 11:34 AM [facility] Glucose 88 70 - 100 mg/dL LAB CHEMISTRY METHOD 05/11/2024 11:34 AM [facility] BUN 32(H) 5 - 25 mg/dL LAB CHEMISTRY METHOD 05/11/2024 11:34 AM [facility] LAB Creatinine 0.44(L) 0.50 - 1.10 mg/dL LAB CHEMISTRY METHOD 05/11/2024 11:34 AM [facility] LAB eGFR 95 >=60 mL/min/1. 73m2 LAB CHEMISTRY METHOD 05/11/2024 11:34 AM [facility] Comment:Calculation based on the Chronic Kidney Disease Epidemiology Collaboration (CKD-EPI) equation refit without adjustment for race. BUN/Creatinine Ratio 72.7 LAB CHEMISTRY METHOD 05/11/2024 11:34 AM [facility] Calcium 9.1 8.5 - 10.5 mg/dL LAB CHEMISTRY METHOD 05/11/2024 11:34 AM [facility] LAB AST (SGOT) 25 10 - 42 unit/L LAB CHEMISTRY METHOD 05/11/2024 11:34 AM EST [facility] LAB ALT (SGPT) 24 10 - 60 unit/L LAB CHEMISTRY METHOD 05/11/2024 11:34 AM [facility] LAB Alkaline Phosphatase 76 42 - 121 unit/L LAB CHEMISTRY METHOD 05/11/2024 11:34 AM [facility] Total Protein 5.8(L) 6.0 - 8.0 g/dL LAB CHEMISTRY METHOD 05/11/2024 11:34 AM [facility] Albumin 2.5(L) 3.2 - 5.0 g/dL LAB CHEMISTRY METHOD 05/11/2024 11:34 AM [facility] Total Bilirubin 0.5 0.0 - 1.4 mg/dL LAB CHEMISTRY METHOD 05/11/2024 11:34 AM [facility] LAB Blood Venous blood specimen / Unknown Venipuncture / Unknown 05/11/2024 6:21 AM EST 05/11/2024 10:41 AM EST us Flaco Moser MD LAB BLOOD ORDERABLES Final Res ult [facility] [address] [place] [address], documented in this encounter Visit Diagnoses Diagnosis Encounter for other general examination documented in this encounter Care Teams Internet Project Manager Relationship Specialty Start Date End Date Flaco Moser MD [address] [place] [phone] PCP - General Internal Medicine 05/08/24 documented as of this encounter
--- OUTSIDE RECORDS SUMMARY | 2025-01-23 06:12 | XMS_ITS | Encounter Summary ---
Author Organization [facility] Address [address] [place] [address] Care Team Providers Care Structural Shop Helper Name Role Phone Flaco Moser MD Primary Care Provider [phone] Encounter Details Date Type Department Care Team (Late st Contact Info) Description 05/11/2024 Lab Requisition [facility] - Main Lab [address] [facility] [place] [address] Flaco Moser MD [address] [place] [address] [phone] Encounter for other general examination Social History [...] MICROBIOLOGY - GENERAL ORD ERABLES Final Result [facility] [address] [place] [address], [place] [phone] * (ABNORMAL) Urinalysis with reflex microscopic and culture (05/10/2024 2:00 PM EST) Specific [place] Urine 1.026 1.003 - 1.030 LAB URINALYSIS [...] MD LAB URINE ORDERABLES Final Res ult [facility] [address] [place] [address], * Chen urine culture tube (05/10/2024 2:00 PM EST) Extra Tube Hold for add-ons. 05/11/2024 12:[address] [facility] Comment:Auto resulted. Urine Urine specimen from urethra / Unknown 05/10/2024 2:00 PM EST 05/11/2024 10:48 AM EST us Flaco Moser MD LAB URINE ORDERABLES Final Res ult [facility] [address] [place] [address], documented in this encounter Visit Diagnoses Diagnosis Encounter for other general examination documented in this encounter Care Teams Structural Shop Helper Relationship Specialty Start Date End Date Flaco Moser MD [address] [place] [phone] PCP - General Internal Medicine 05/08/24 documented as of this encounter
--- OUTSIDE RECORDS SUMMARY | 2025-01-23 06:12 | XMS_ITS | Encounter Summary ---
Author Organization [facility] Address [address] [place] [address] Care Team Providers Care Environmental Marketing Representative Name Role Phone Flaco Moser MD Primary Care Provider [phone] Encounter Details Date Type Department Care Team (Late st Contact Info) Description 05/21/2024 Lab Requisition [facility] - Main Lab [address] [place] [id number] Flaco Moser MD [address] [place] [address] [phone] Encounter for other general examination Social History [...] AM EDT) WBC 4.2(L) 4.8 - 10.8 K/[facility] LAB HEMETOLOGY METHOD 05/21/2024 1:18 PM EDT [facility] LAB RBC 3.80 3.80 - 4.80 M/[facility] LAB HEMETOLOGY METHOD 05/21/2024 1:18 PM EDT [facility] LAB Hemoglobin 11.7 11.5 - 16.0 g/dL LAB HEMETOLOGY METHOD 05/21/2024 1:18 PM EDT [facility] LAB Hematocrit 36.3 35.0 - 47.0 % LAB HEMETOLOGY METHOD 05/21/2024 1:18 PM EDT [facility] LAB MCV 94.8 79.0 - 98.0 FL LAB HEMETOLOGY METHOD 05/21/2024 1:18 PM EDT [facility] LAB MCH 30.5 27.0 - 32.0 pcg LAB HEMETOLOGY METHOD 05/21/2024 1:18 PM EDT [facility] LAB MCHC 32.2 32.0 - 37.0 g/dL LAB HEMETOLOGY METHOD 05/21/2024 1:18 [facility] RDW 13.1 11.0 - 15.0 % LAB HEMETOLOGY METHOD 05/21/2024 1:18 PM EDT [facility] LAB Platelets 432(H) 130 - 400 K/mcL LAB HEMETOLOGY METHOD 05/21/2024 1:18 PM EDT [facility] LAB MPV 8.8 7.0 - 11.0 FL LAB HEMETOLOGY METHOD 05/21/2024 1:18 [facility] NRBC 0.0 <1.0 % LAB HEMETOLOGY METHOD 05/21/2024 1:18 PM EDT [facility] LAB NRBC Absolute 0.00 <0.10 K/mcL LAB HEMETOLOGY METHOD 05/21/2024 1:18 PM [facility] LAB Blood Venous blood specimen / Unknown Venipuncture / Unknown 05/21/2024 5:58 AM EDT 05/21/2024 10:05 AM EDT Flaco Moser MD LAB BLOOD ORDERABLES Final Res ult [facility] LAB [address] [place] [address], * (ABNORMAL) Comprehensive metabolic panel (05/21/2024 5:58 AM EDT) Sodium 140 133 - 145 mmol/L LAB CHEMISTRY METHOD 05/21/2024 1:50 PM EDT [facility] LAB Potassium 3.9 3.5 - 5.5 mmol/L LAB CHEMISTRY METHOD 05/21/2024 1:50 PM [facility] LAB Chloride 104 96 - 110 mmol/L LAB CHEMISTRY METHOD 05/21/2024 1:50 PM [facility] LAB CO2 27 21 - 32 mmol/L LAB CHEMISTRY METHOD 05/21/2024 1:50 PM [facility] LAB Anion Gap 9 3 - 11 LAB CHEMISTRY METHOD 05/21/2024 1:50 PM [facility] LAB Glucose 85 70 - 100 mg/dL LAB CHEMISTRY METHOD 05/21/2024 1:50 PM [facility] LAB BUN 8 5 - 25 mg/dL LAB CHEMISTRY METHOD 05/21/2024 1:50 PM [facility] LAB Creatinine 0.43(L) 0.50 - 1.10 mg/dL LAB CHEMISTRY METHOD 05/21/2024 1:50 [facility] eGFR 95 >=60 mL/min/1. 73m2 LAB CHEMISTRY METHOD 05/21/2024 1:50 PM [facility] LAB Comment:Calculation based on the Chronic Kidney Disease Epidemiology Collaboration (CKD-EPI) equation refit without adjustment for race. BUN/Creatinine Ratio 18.6 LAB CHEMISTRY METHOD 05/21/2024 1:50 PM [facility] LAB Calcium 8.9 8.5 - 10.5 mg/dL LAB CHEMISTRY METHOD 05/21/2024 1:50 PM [facility] LAB AST (SGOT) 10 10 - 42 unit/L LAB CHEMISTRY METHOD 05/21/2024 1:50 PM EDT [facility] LAB ALT (SGPT) 16 10 - 60 unit/L LAB CHEMISTRY METHOD 05/21/2024 1:50 PM EDT [facility] LAB Alkaline Phosphatase 103 42 - 121 unit/L LAB CHEMISTRY METHOD 05/21/2024 1:50 PM EDT [facility] LAB Total Protein 5.8(L) 6.0 - 8.0 g/dL LAB CHEMISTRY METHOD 05/21/2024 1:50 PM EDT [facility] LAB Albumin 2.7(L) 3.2 - 5.0 g/dL LAB CHEMISTRY METHOD 05/21/2024 1:50 PM EDT [facility] LAB Total Bilirubin 0.4 0.0 - 1.4 mg/dL LAB CHEMISTRY METHOD 05/21/2024 1:50 PM EDT [facility] LAB Blood Venous blood specimen / Unknown Venipuncture / Unknown 05/21/2024 5:58 AM EDT 05/21/2024 10:05 AM EDT Flaco Moser MD LAB BLOOD ORDERABLES Final Res ult [facility] [address] [place] [address], documented in this encounter Visit Diagnoses Diagnosis Encounter for other general examination documented in this encounter Care Teams Environmental Marketing Representative Relationship Specialty Start Date End Date Flaco Moser MD [address] [place] [phone] PCP - General Internal Medicine 05/08/24 documented as of this encounter
--- OUTSIDE RECORDS SUMMARY | 2025-01-23 06:12 | XMS_ITS | Encounter Summary ---
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 Name Role Phone Flaco Moser MD Primary Care Provider [phone] Encounter Details Date Type Department Care Team (Late st Contact Info) Description 05/08/2024 Lab Requisition [facility] - Main Lab [address] [facility] [place] [address] Flaco Moser MD [address] [place] [address] [phone] Encounter for other general examination Social History [...] K/mcL LAB HEMETOLOGY METHOD 05/08/2024 10:28 AM [facility] LAB RBC 4.10 3.80 - 4.80 M/mcL LAB HEMETOLOGY METHOD 05/08/2024 10:28 AM [facility] LAB Hemoglobin 12.4 11.5 - 16.0 g/dL LAB HEMETOLOGY METHOD 05/08/2024 10:28 AM [facility] LAB Hematocrit 37.3 35.0 - 47.0 % LAB HEMETOLOGY METHOD 05/08/2024 10:28 AM [facility] LAB MCV 91.6 79.0 - 98.0 FL LAB HEMETOLOGY METHOD 05/08/2024 10:28 AM [facility] LAB MCH 30.5 27.0 - 32.0 pcg LAB HEMETOLOGY METHOD 05/08/2024 10:28 AM [facility] LAB MCHC 33.2 32.0 - 37.0 g/dL LAB HEMETOLOGY METHOD 05/08/2024 10:28 AM [facility] LAB RDW 12.8 11.0 - 15.0 % LAB HEMETOLOGY METHOD 05/08/2024 10:28 AM [facility] LAB Platelets 265 130 - 400 K/mcL LAB HEMETOLOGY METHOD 05/08/2024 10:28 AM [facility] LAB MPV 9.5 7.0 - 11.0 FL LAB HEMETOLOGY METHOD 05/08/2024 10:28 AM [facility] LAB NRBC 0.0 <1.0 % LAB HEMETOLOGY METHOD 05/08/2024 10:28 AM [facility] LAB NRBC Absolute 0.00 <0.10 K/mcL LAB HEMETOLOGY METHOD 05/08/2024 10:28 AM [facility] LAB Neutrophils Relative 63.2 % LAB HEMETOLOGY METHOD 05/08/2024 10:28 AM [facility] LAB Lymphocytes Relative 18.8 % LAB HEMETOLOGY METHOD 05/08/2024 10:28 AM [facility] LAB Monocytes Relative 14.3 % LAB HEMETOLOGY METHOD 05/08/2024 10:28 AM [facility] LAB Eosinophils Relative 2.5 % LAB HEMETOLOGY METHOD 05/08/2024 10:28 AM [facility] LAB Basophils Relative 0.6 % LAB HEMETOLOGY METHOD 05/08/2024 10:28 AM [facility] LAB Immature Granulocytes Relative 0.6 % LAB HEMETOLOGY METHOD 05/08/2024 10:28 AM [facility] LAB Neutrophils Absolute 5.31 1.50 - 7.00 K/mcL LAB HEMETOLOGY METHOD 05/08/2024 10:28 AM [facility] LAB Lymphocytes Absolute 1.58 1.00 - 5.00 K/mcL LAB HEMETOLOGY METHOD 05/08/2024 10:28 AM [facility] LAB Monocytes Absolute 1.20(H) 0.20 - 1.00 K/mcL LAB HEMETOLOGY METHOD 05/08/2024 10:28 AM [facility] LAB Eosinophils Absolute 0.21 0.00 - 0.50 K/mcL LAB HEMETOLOGY METHOD 05/08/2024 10:28 AM [facility] LAB Basophils Absolute 0.05 0.00 - 0.20 K/mcL LAB HEMETOLOGY METHOD 05/08/2024 10:28 AM [facility] LAB Immature Granulocytes Absolute 0.05(H) 0.00 - 0.03 K/mcL LAB HEMETOLOGY METHOD 05/08/2024 10:28 AM [facility] LAB Blood Venous blood specimen / Unknown Venipuncture / Unknown 05/08/2024 6:13 AM EST 05/08/2024 9:15 AM EST us Adnan M Dahdul MD LAB BLOOD ORDERABLES Final Res ult [facility] [address] [place] [address], [place] [phone] * (ABNORMAL) Magnesium (05/08/2024 6:13 AM EST) Magnesium 1.8(L) 1.9 - 2.6 mg/dL LAB CHEMISTRY METHOD 05/08/2024 10:52 AM EST [facility] LAB Blood Venous blood specimen / Unknown Venipuncture / Unknown 05/08/2024 6:13 AM EST 05/08/2024 9:15 AM EST Flaco Moser MD LAB BLOOD ORDERABLES Final Res ult Performing Organization Address City/[facility]/ZIP Co de Phone Number [facility] LAB [address] [place] [address], [place] [phone] * (ABNORMAL) Comprehensive metabolic panel (05/08/2024 6:13 AM EST) Pathologist [facility] Sodium 132(L) 133 - 145 mmol/L LAB CHEMISTRY METHOD 05/08/2024 10:52 AM [facility] LAB Potassium 3.9 3.5 - 5.5 mmol/L LAB CHEMISTRY METHOD 05/08/2024 10:52 AM [facility] LAB Chloride 93(L) 96 - 110 mmol/L LAB CHEMISTRY METHOD 05/08/2024 10:52 AM [facility] LAB CO2 32 21 - 32 mmol/L LAB CHEMISTRY METHOD 05/08/2024 10:52 AM [facility] LAB Anion Gap 7 3 - 11 LAB CHEMISTRY METHOD 05/08/2024 10:52 AM [facility] LAB Glucose 99 70 - 100 mg/dL LAB CHEMISTRY METHOD 05/08/2024 10:52 AM [facility] LAB BUN 49(H) 5 - 25 mg/dL LAB CHEMISTRY METHOD 05/08/2024 10:52 AM [facility] LAB Creatinine 0.62 0.50 - 1.10 mg/dL LAB CHEMISTRY METHOD 05/08/2024 10:52 AM [facility] LAB eGFR 87 >=60 mL/min/1. 73m2 LAB CHEMISTRY METHOD 05/08/2024 10:52 AM [facility] LAB Comment:Calculation based on the Chronic Kidney Disease Epidemiology Collaboration (CKD-EPI) equation refit without adjustment for race. BUN/Creatinine Ratio 79.0 LAB CHEMISTRY METHOD 05/08/2024 10:52 AM [facility] LAB Calcium 9.3 8.5 - 10.5 mg/dL LAB CHEMISTRY METHOD 05/08/2024 10:52 AM [facility] LAB AST (SGOT) 32 10 - 42 unit/L LAB CHEMISTRY METHOD 05/08/2024 10:52 AM [facility] LAB ALT (SGPT) 25 10 - 60 unit/L LAB CHEMISTRY METHOD 05/08/2024 10:52 AM [facility] LAB Alkaline Phosphatase 74 42 - 121 unit/L LAB CHEMISTRY METHOD 05/08/2024 10:52 AM [facility] LAB Total Protein 5.7(L) 6.0 - 8.0 g/dL LAB CHEMISTRY METHOD 05/08/2024 10:52 AM [facility] LAB Albumin 2.5(L) 3.2 - 5.0 g/dL LAB CHEMISTRY METHOD 05/08/2024 10:52 AM [facility] LAB Total Bilirubin 0.6 0.0 - 1.4 mg/dL LAB CHEMISTRY METHOD 05/08/2024 10:52 AM [facility] LAB Blood Venous blood specimen / Unknown Venipuncture / Unknown 05/08/2024 6:13 AM EST 05/08/2024 9:15 AM EST us Flaco Moser MD LAB BLOOD ORDERABLES Final Res ult [facility] LAB [address] [place] [address], documented in this encounter Visit Diagnoses Diagnosis Encounter for other general examination documented in this encounter Care Teams Heel Washer Stringing Machine Operator Relationship Specialty Start Date End Date Flaco Moser MD [address] [place] [phone] PCP - General Internal Medicine 05/08/24 documented as of this encounter
--- OUTSIDE RECORDS SUMMARY | 2025-01-23 06:12 | XMS_ITS | Data Portability ---
Author Organization [place] [facility] Address [address] [place] [address] Care Team Providers Care Blanket Cutter Hand Name Role Phone ELVIS LUBIN Primary Care Provider [phone] Assessment Encounter Date Assessment Date Assessment LastModified by Organization Details LastModified Time 07/09/2021 07/09/2021 80 year old female patient new to with PMHx of htn and hyperlipidemia. States she did at home Covid test on 07/06/21 due to exposure and symptoms (cough and muscle ache) with positive finding. Patient overall feels good and is able to tolerate po intake. Yesterday she experienced one episode of watery BM which lasted a long time . Denies any BM today. Denies any nausea or vomiting. States she ate a baked potato with butter and sour cream yesterday. Cough and muscle ache greatly improved. Exam: Very pleasant, elderly female sitting in recliner conversing with staff and answering all questions appropriately. No acute distress, neurologically intact, EOMI, oropharynx clear with dry mucous membranes. Respirations even and nonlabored, bilateral breath sounds clear to auscultation. Heart RRR. Abdomen soft without distension, active bowel sounds. No CVA tenderness. No edema to extremity. Good skin turgor. Test: Imaging and blood analysis not warranted. DDx: Gastroenteritis, IBS-D, c-diff -Most likely viral with current diagnosis of Covid -Less likely c-diff given one episode of lose stool and no recent use of abx. -Less likely IBS-D due to lack of abdominal pain Plan: Discussed with patient following BRAT diet, increasing fluids such as Gatorade, water, and pedialyte to prevent possible dehydration. Imodium AD prescribed for as needed. The patient is advised to make an appt with PCP in 3-5 days to discuss ongoing symptoms/ further management. The patient is also advised to go to the ED immediately for any worsening symptoms. The patient understood and agreed with this plan. The patient was given discharge instructions and all questions were answered prior to DH team departure. Time On Scene with Patient: 01:33:36 [email or web address] Not available 07/09/2021 12:56:14 Plan of Treatment Reminders Order Date Submit Date Provider Last Modified By Organization Details Last Modified Time Details Appointments None recorded. Lab None recorded. Referral None recorded. Procedures None recorded. Surgeries None recorded. Imaging None recorded. Medication Orders Imodium A-D 2 mg capsule [id number], [address] [facility] [place], [address], 11:19:44 Patient TargetsNo targets recorded. Patient Instructions Encounter Date Encounter Id Patient Instructions Last Modified By Organization Details Last Modified Time 07/09/2021 [id number] Acute Nausea and Vomiting/Diarrhea BASIC INFORMATION Acute nausea and vomiting often start suddenly, worsen quickly, and last a few hours to 24 hours. Nausea and vomiting most often occur together, although they can occur alone. Cases of acute nausea and vomiting are often from gastrointestinal viruses such as norovirus, rotavirus and influenza. Less often it can be caused by toxins released from food that g oes bad as well as some types of bacteria and parasites. Diarrhea can also occur. Your nurse practitioner will conduct a careful history to help determine if you have one of the more serious causes. The cause of your nausea and vomiting may be unknown. INSTRUCTIONS Medicines: 1) Anti-nausea: You may have been given a prescription for an anti nausea medicine such as Zofran, Phenergan or Compazine. These can be used every 6-8 hours to help prevent nausea and vomiting. They can make you sleepy, so do not drive after taking them. Be sure to read all of the drug information from the pharmacy. 2) Tylenol: Low grade fever is common with acute nausea and vomiting. You may use Tylenol, per the recommended dosing on the label, to help control fever. If you have liver disease, do not use Tylenol. Ask your SCALEHOUSE ATTENDANT how to address fever if you are concerned about Tylenol use. 3) Anti-diarrheal medicines: These are available [id number], but in some cases are not recommended and can even worsen some cases of intestinal problems. Ask your SCALEHOUSE ATTENDANT if you should use them. In children under 12, the only anti-diarrheal that should be considered is Kaopectate. Diet: 1) For the next 12-24 hours, take clear liquids only. No dairy and no caffeinated beverages. After you have not vomited for a complete hour (either with or without the help of the anti-nausea medicine), begin by taking one tablespoon of clear liquid every 15 minutes for one hour. If you are able to tolerate this, you may increase the amount to 2 tablespoons every hour for the next 2 hours. 2) Clear liquids such as gatorade, pedialyte or broth are recommended because of the electrolytes and sugars that will help replenish the losses from vomiting and diarrhea. 3) If you are able to tolerate clear liquids as instructed above, you may begin to take a bland diet. Plain pasta/noodles or toast are suggestions. If you have had diarrhea, bananas, rice and applesauce are suggested as these can help make the stools more solid. Avoid greasy, fatty or fried foods FOLLOW UP You should make an appointment to see your primary care provider within 24 hours or sooner for worsening condition as described below. If you do not have a primary care doctor, you should follow up with one of the PCP suggestions from [facility]. SEEK CARE IMMEDIATELY IF: 1) You are still unable to tolerate any oral intake after 24 hours 2) You have blood in your vomit or stool 3) You develop severe abdominal pain that does not go away after an episode of vomiting or diarrhea 4) You have severe dizziness, heart palpitations or are passing out 5) You develop severe muscle cramps or weakness 6) You have not made urine in over 24 hours If you develop any new or worsening symptoms and need after hours care, please go to nearest ER and/or call 911. If you have additional concerns or develop a change in your condition between 8am-10pm, please call [facility] at [phone] to help navigate your care. Thank you for your visit with [facility] today. You were seen today for abdominal pain, nausea, vomiting and/or diarrhea. Medications may have been administered and lab tests may have been performed. At this time, we do not see evidence of a serious surgical or infectious cause of your symptoms. However, lab tests and an evaluation cannot always exclude appendicitis or other serious causes of abdominal pain. Please see a medical professional in 12-24 hours to be re-examined. Seek immediate medical attention for increased pain, vomiting or fever. If you develop any new or worsening symptoms and need after hours care, please go to nearest ER and/or call 911. If you have additional concerns or develop a change in your condition between 8am-10pm, please call [facility] at [phone] to help navigate your care. [email or web address] [id number] Not available 07/09/2021 11:13:43 Reason for Referral None Reported. Procedures Surgical History Date Name Laterality Status Provider Name and Address Organization Details Recorded Time delivery completed September JO Uribe [address] [place], [address], [place] [facility] 07/09/2021 11:03:04 Cholecystectomy completed September JO Uribe [address], [place], [address], [place] [facility] 07/09/2021 11:03:32 Imaging Results None recorded. Procedure Notes None recorded. Medical Equipment None Reported. Medications Name Sig Start Date Stop Date Status Note LastModified by Organization Details LastModified Time loperamide 2 mg capsule Take 1 capsule every 8 hours by oral route as needed for 5 days. active Not Available Not Available No t Available simvastatin 10 mg tablet active Not Available Not Available Not Available atenolol 50 mg-chlorthal idone 25 mg tablet active Not Available Not Available Not Available potassium chloride ER 20 mEq tablet,exten ded release(part /cryst) active Not Available Not Available Not Available nitrofuranto in monohydrate/ macrocrystal s 100 mg capsule 07/09 completed Not Available Not Available Not Available potassium chloride ER 20 mEq tablet,exten ded release 07/09 completed Not Available Not Available Not Available Vitals Date Recorded Oxygen saturation Oxygen saturation in Arterial blood by Pulse oximetry Respiratory rate Heart rate Body temperature Systolic And Diastolic Provider Name and Address Organization Details Last Updated DateTime 2 97 % 97 % 18 /min 102 /min 98 [degF] 122/74 mm[Hg] Not Available [facility] 11:03:24 Social History Question Answer Notes LastModified by Organizat ion Details LastModified Time Tobacco Smoking Status Former Smoker Naomi Uribe [employer] [address], [place], [address], [place] [facility] 07/09/2021 11:00:57 Do You Have An Advance Directive? No [email or web address] Information not available 07/09/2021 Within The Past 12 Months, Has It Happened That The Food You Bought Just Didn't Last And You Didn't Have Money To Get More. No [email or web address] Information not available 07/09/2021 Within The Past 12 Months, Have You Worried That Your Food Would Run Out Before You Got Money To Buy More. No [email or web address] Information not available 07/09/2021 Fall Risk: Do You Feel Unsteady When Standing Or Walking? No Information not available 07/09/2021 We Know That How And When People Interact With Friends And Family Can Be Very Different From Person To Person. How Often Do You Have The Opportunity To See Or Talk To People That You Care About And Feel Close To? (Ex: Talking To Friends On The Phone Or Visiting Friends Or Family Or Going To Anglican Or Club Meetings) 3 Or 4 Times Per Week Information not available 07/09/2021 Excessive Alcohol Or Drug Use No [email or web address] Information not available 07/09/2021 Does This Patient Have A PCP? Yes [email or web address] Information not available 07/09/2021 Has The Patient Seen Their PCP In The Past 6 Months? No [email or web address] Information not available 07/09/2021 We Know From Many Of Our Patients That Covering All Of Their Costs Can Be Difficult At Times. This Can Cause Stress And Impact Health. In The Past Year, Have You Been Unable To Get Any Of The Following When It Was Really Needed? No [email or web address] Information not available 07/09/2021 What Is Your Housing Situation Today? I Have Housing [email or web address] Information not available 07/09/2021 Would You Like Help Connecting To Resources? None [email or web address] Information not available 07/09/2021 How Many Years Have You Smoked Tobacco? 30 [email or web address] Information not available 07/09/2021 Sex: Unknown Functional Status Question Answer Note LastModified by Organizat ion Details LastModified Time Do you use any illicit or recreational drugs? No [email or web address] Information not available 07/09/2021 Do you or have you ever used any other forms of tobacco or nicotine? No [email or web address] Information not available 07/09/2021 What is your level of alcohol consumption? Occasional [email or web address] Information not available 07/09/2021 Mental Status None recorded. Family History Nothing Reported. Medical History Condition Response Coronary Artery Disease N Parkinson's Disease N COPD N Depression N Hypothyroidism N A-fib N Diabetes N CHF N Cancer N Dementia N Stroke N Asthma N High Cholesterol Y Rheumatoid Arthritis N Pulmonary Embolism N Hypertension Y Osteoporosis N Kidney Disease N Gynecological HistoryNo gynecological history recorded. Obstetrics History GPAL:G 0 P 0 0 0 0 Past Encounters Encounter ID Performer Location Encounter Start Date Encounter Closed Date Diagnosis/Indication Diagnosis SNOMED-CT Code Diagnosis ICD10 Code Diagnosis IMO Codes Diagnosis Note [id number] September JO Uribe [facility] [address] [place] [address] 07/09/2021 10:57:40 07/13/2021 17:57:29 Diarrhea 89641092 R19.7 COVID-19 938503799 U07.1 Health Concerns Section Related Observation LastModified by Organization Detai ls LastModified Time None Recorded Concern Status LastModified by Organization Details LastModified Time None Recorded Advance Directives Directive N: Payers Insurance Date Sequence Insurance Name Policy Number Policy Carter Covered Member ID Carter Member ID Guarantor Name 07/09/2021 1 *SELF PAY* Margi House [id number] Margi House 07/13/2021 1 [place]MEDICARE [place]PLACEMENT HMO) Margi House [id number] Margi House 07/21/2021 1 *SELF PAY* Margi House NEED MEDICARE ID Margi House 07/21/2021 1 [place] [employer] Margi House [id number] Margi House 07/21/2021 2 [place] [id number] Margi House [id number] Margi House 07/13/2021 1 [place] [employer] Margi House [id number] Margi House Notes Date Note Type Note Provider Name and Address Organization Details Recorded Time 07/09/2021 text/html General HPI Template - DHReported by Patient 80 year old female patient new to with PMHx of htn and hyperlipidemia. States she did at home Covid test on 07/06/21 due to exposure and symptoms (cough and muscle ache) with positive finding. Patient overall feels good and is able to tolerate po intake. Yesterday she experienced one episode of watery BM which lasted a long time . Denies any BM today. Denies any nausea or vomiting. Cough and muscle ache greatly improved. September Rony, JO [address], [place], [address], [place] [facility] 07/09/2021 12:56:23 OBGyn Episode No OBEpisode recorded.
== END 2025-01-22 14:08 | disposition home or self-care (01) ==
PROVIDERS: PCP Nurse Practitioner Family; Visit Provider Physician Assistant
DX: M17.12 Unilateral primary osteoarthritis, left knee (principal)
CPT/HCPCS: 20610

== ENCOUNTER → 2025-01-22 13:21 | Outpatient (BNVA) | payer MEDICARE, SELFPAY | PROVIDERS: PCP Nurse Practitioner Family; Visit Provider Physician Assistant | DX: M17.12 Unilateral primary osteoarthritis, left knee (principal) | CPT/HCPCS: 20610; J0665; J1100; J2003 ==